=== PATIENT | female | born 2000 | race Caucasian/White ===

== ENCOUNTER 2024-06-28 11:08 | Outpatient (REF) | payer BC, SELFPAY ==
--- OUTSIDE RECORDS SUMMARY | 2024-06-28 14:10 | XMS_ITS | Encounter Summary ---
Author Organization [facility] Address [address] [place] [address] Care Team Providers Care Auto Locator Name Role Phone Luan Desir Primary Care Provider Reason for Visit * Reason Onset Date Comments seizures 12/08/2020 Encounter Details Date Type Department Care Team (Late st Contact Info) Description 12/08/2020 Telephone [facility] [address] [place] [address] Telephone Intake, Staff seizures Social History Tobacco [...] above. Best callback number and time: Catherine [phone] Guerreor asked her to call if any breakthrough seizures. Labs can be faxed to [facility] [phone] * Telephone Encounter - Angi Alatorre - [...] 2021. Please call mother Catherine back at [phone] documented in this encounter Plan of Treatment Not on file documented as of this encounter Visit Diagnoses Not on filedocumented in this encounter Care Teams Auto Locator Relationship Specialty Start Date End Date Luan Desir [address] [place] [address] PCP - General Family Medicine 07/28/20 documented as of this encounter
--- OUTSIDE RECORDS SUMMARY | 2024-06-28 14:11 | XMS_ITS | Referral Summary ---
Author Organization [facility] Address [address] [place] [address] Care Team Providers Care Livestock Farm Manager Name Role Phone Luan Desir Primary [...] [place] [address] BCBS OUT OF STATE PPO Advance Directives Documents on File Type Date Recorded Patient Cellular Phone Repairer Expl anation Health Care Proxy 09/08/2021 12:40 PM - * Full Code (Latest Code Status on File) Date Activated Date Inactivated Comments 09/07/2021 4:40 PM 09/11/2021 6:04 PM Healthcare Agents on File Name Relationship Healthcare Agent Relationshi p Communication Catherine Cliff Mother Health Care Agent Cieragail Coronado Father [facility] Health Care Ag ent Care Teams Livestock Farm Manager Relationship Specialty Start Date End Date Luan Desir [address] [place] [id number] PCP - General Family Medicine 07/28/20
--- OUTSIDE RECORDS SUMMARY | 2024-06-28 14:11 | XMS_ITS | Encounter Summary ---
Author Organization [facility] Address [address] [place] [address] Care Team Providers Care Bag Shaker Name Role Phone Luan Desir Primary Care Provider [phone] Reason for Visit * Reason Comments Med Refill Encounter Details Date Type Department Care Team (Late st Contact Info) Description 01/02/2021 Refill [facility] [address] [place] [id number] Miky Guerrero MD [address] [place] [phone] Social History Tobacco Use Types Packs/Day Years [...] on filedocumented in this encounter Care Teams Bag Shaker Relationship Specialty Start Date End Date Luan Desir [address] [place] [phone] PCP - General Family Medicine 07/28/20 documented as of this encounter
--- OUTSIDE RECORDS SUMMARY | 2024-06-28 14:11 | XMS_ITS | Encounter Summary ---
Author Organization [facility] Address [address] [place] [address] Care Team Providers Care Valve Steamer Name Role Phone Luan Desir MD Primary Care Provider + Encounter Details Date Type Department Care Team (Late st Contact Info) Description 06/18/2020 Scanned Document [facility] [place] [address] [place] [address] [place] [id number] Provider, MD Yodit [address] [place] [address] Social History Tobacco Use Types Packs/Day Years [...] on filedocumented in this encounter Care Teams Valve Steamer Relationship Specialty Start Date End Date Luan Desir MD [address] [place] [id number] PCP - General 12/07/18 documented as of this encounter
--- OUTSIDE RECORDS SUMMARY | 2024-06-28 14:11 | XMS_ITS | Encounter Summary ---
Author Organization [facility] Address [address] [place] [address] Care Team Providers Care Linen Room Custodian Name Role Phone Luan Desir Primary Care Provider [phone] Reason for Visit * Reason Onset Date Comments call to speak with provider 05/28/2021 Encounter Details Date Type Department Care Team (Late st Contact Info) Description 05/28/2021 Telephone [facility] Central Scheduling Department [address] [place] [address] Telephone Intake, Staff call to speak with [...] she had pls follow up with pt [phone] documented in this encounter Plan of Treatment Not on file documented as of this encounter Visit Diagnoses Not on filedocumented in this encounter Care Teams Linen Room Custodian Relationship Specialty Start Date End Date Luan Desir [address] [place] [id number] PCP - General Family Medicine 07/28/20 documented as of this encounter
--- OUTSIDE RECORDS SUMMARY | 2024-06-28 14:11 | XMS_ITS | Clinical Summary ---
Author Organization [facility] Address [address] [place] [address] Care Team Providers Care Counter Hand Name Role Phone Luan Desir Primary Care [...] Documents on File Type Date Recorded Patient Sales Management Trainee Expl anation Health Care Proxy 09/08/2021 12:40 PM -2 * Full Code (Latest Code Status on File) Date Activated Date Inactivated Comments 09/07/2021 4:40 PM 09/11/2021 6:04 PM Healthcare Agents on File Name Relationship Healthcare Agent Relationshi p Communication Catherine Coronado Mother Health Care Agent Ciera Singh Cliff Father Alternate Health Care Ag ent Care Teams Counter Hand Relationship Specialty Start Date End Date Luan Desir [address] [place] [id number] PCP - General Family Medicine 07/28/20
--- OUTSIDE RECORDS SUMMARY | 2024-06-28 14:11 | XMS_ITS | Encounter Summary ---
Author Organization [facility] Address [address] [place] [address] Care Team Providers Care Blueprint Blocker Name Role Phone Luan Desir Primary Care Provider [phone] Encounter Details Date Type Department Care Team (Late st Contact Info) Description 07/28/2021 Telephone [facility] [address] [place] [address] Malcolm Le MD [address] [place] [address] Social History Tobacco Use Types Packs/Day Years [...] Primary documented in this encounter Care Teams Blueprint Blocker Relationship Specialty Start Date End Date Luan Desir [address] [place] [id number] PCP - General Family Medicine 07/28/20 documented as of this encounter
--- OUTSIDE RECORDS SUMMARY | 2024-06-28 14:11 | XMS_ITS | Clinical Summary ---
Author Organization [facility] Address [address] [place] [address] Care Team Providers Care Hospital Aides And Assistants Teacher Name Role Phone Manjinder Aguila MD Primary Care Provider [phone] Source Comments Please note that some or [...] so, obtain the minor's consent prior to disclosure.[facility] Allergies No known active allergies Medications [...] to complete this topic Insurance [facility] Address: [facility] [address] [place] [address] Care Teams Hospital Aides And Assistants Teacher Relationship Specialty Start Date End Date Manjinder Aguila MD PCP - General 02/10/16
--- OUTSIDE RECORDS SUMMARY | 2024-06-28 14:11 | XMS_ITS | Encounter Summary ---
Author Organization [facility] Address [address] [place] [address] Care Team Providers Care Trade Union Secretary Name Role Phone Luan Desir Primary Care Provider [phone] Encounter Details Date Type Department Care Team (Late st Contact Info) Description 07/28/2021 myChart Message [facility] [address] [place] [phone] Mychart, Generic Provider [address] [place] [phone] LTM-admission scheduled for: 09-07-2021 Social History Tobacco [...] on filedocumented in this encounter Care Teams Trade Union Secretary Relationship Specialty Start Date End Date Luan Desir [address] [place] [id number] PCP - General Family Medicine 07/28/20 documented as of this encounter
--- OUTSIDE RECORDS SUMMARY | 2024-06-28 14:11 | XMS_ITS | Encounter Summary ---
Author Organization [facility] Address [address] [place] [address] Care Team Providers Care Repair Miller Name Role Phone Luan Desir Primary Care Provider [phone] Encounter Details Date Type Department Care Team (Late st Contact Info) Description 07/30/2021 Tracksmithhart Message [facility] [address] [place] [id number] Mychart, Generic Provider [address] [place] [phone] LTM admission for 09-07-21/ day & hours. [...] on filedocumented in this encounter Care Teams Repair Miller Relationship Specialty Start Date End Date Luan Desir [address] [place] [address] PCP - General Family Medicine 07/28/20 documented as of this encounter
--- OUTSIDE RECORDS SUMMARY | 2024-06-28 14:11 | XMS_ITS | Clinical Summary ---
Author Organization [facility] Address [address] [place] [address] Care Team Providers Care Circus Hand Name Role Phone Luan Desir MD Primary [...] age to complete this topic Care Teams Circus Hand Relationship Specialty Start Date End Date Luan Desir MD [address] [place] [address] PCP - General 12/07/18
[2024-06-28 14:27] LABS: Influenza A PCR NEGATIVE (Negative); Influenza B PCR NEGATIVE (Negative); Resp Syncy Virus RNA Qual PCR NEGATIVE (Negative); SARS COV2 PCR INHOUSE NEGATIVE (Negative)
== END 2024-06-28 11:09 | disposition home or self-care (01) ==
LOC: HO.LAB 11:08
PROVIDERS: Visit Provider Nurse Practitioner Family
DX: J06.9 Acute upper respiratory infection, unspecified (principal)
CPT/HCPCS: 0241U; 94640

== ENCOUNTER 2024-06-28 11:08 | Outpatient (AMB) | payer BC, SELFPAY ==
--- NOTE | 2024-06-28 11:11 | MHC.OFFWIV ---
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 Reports Subjective Fevers, Diarrhea, Body Aches, Poor Appetite and Cough. [facility] Medical History (Updated 06/28/24 @ 11:35 by Josette Maldonado NP) Wheezing on auscultation Acute respiratory disease Social History Patient Tobacco Use Status: Never used Tobacco Review of Systems Const All systems reviewed & are unremarkable except as noted in HPI and below Physical Exam Vital Signs: Last Vital Signs Temp 98.2 F 06/28/24 11:16 Pulse 80 06/28/24 11:16 BP 116/74 06/28/24 11:16 Pulse Ox 98 06/28/24 11:16 Oxygen Delivery Method Room Air 06/28/24 11:16 BMI result Body Mass Index 23.6 Const General: cooperative and no acute distress Nutritional Appearance: thin Orientation/consciousness: patient oriented x3 HEENT Head: Yes normocephalic Ears: external ears normal and TM abnormal with fluid behind the TM bilateral General nose exam: Normal external nose present and Nasal discharge present Face and sinus: Yes sinuses nontender Mouth: moist mucous membranes Throat: Yes tonsils normal and Yes uvula midline Resp Effort & Inspection: normal respiratory effort and able to speak in complete sentences Auscultation: no crackles, no rales, rhonchi and wheezes scattered wheezes Cardio Rate: regular rate Heart sounds: S1 normal heart sound present and S2 normal heart sound present GI Palpation (GI): Soft to palpation, not firm, Tenderness to palpation present (GI) (Generalized Tenderness), no guarding and not rigid Auscultation: normal bowel sounds Skin Other: Warm, Dry and Pale skin Neuro General: patient oriented x3, gait normal and moves all extremities Psych Speech and movement: Normal speech and movement present Office Procedures Nebulizer Treatment Nebulizer Treatment 27596-Jlrbpeoot/MDI RX initial, or Nebulizer Subsequent Treatment Office Meds ipratropium 0.5 mg-albuterol 3 mg (2.5 mg base)/3 mL nebulization soln Performing Provider: Josette Maldonado NP Performing Location: [facility] Administered by: Josette Maldonado NP on 06/28/24 11:41 Dose Route Admin Location Dispensed Lot Number Expiration Date [facility] [employer] 3 mL inhalation 3 mL 05/18/25 [id number] AHP Assessment & Plan Assessment & Plan (1) Acute respiratory disease: Code(s): J06.9 - Acute upper respiratory infection, unspecified Plan: Ordered SARs Ordered in Office Neb Ordered Prednisone for 5 days. Ordered Amox for 7 days, Tx Walking Pneumonia empirically. Informed Patient if SARs positive, to Stop Taking Abx. Rest and Hydrate well with warm fluids. Filled [employer] Paper work for intermittent Leave from 06/28 - 07/03 (2) Wheezing on auscultation: Code(s): R06.2 - Wheezing Plan: Ordered SARs Ordered in Office Neb. Lungs were CTA after Tx. Ordered Prednisone for 5 days. Ordered Amox for 7 days, Tx Walking Pneumonia empirically. Informed Patient if SARs positive, to Stop Taking Abx. Rest and Hydrate well with warm fluids. Filled [employer]ML[employer] Paper work for intermittent Leave from 06/28 - 07/03 Orders: Orders AMB Nebulizer Treatment Today R06.2 - Wheezing SARS-CoV2/FLU/RSV Today J06.9 - Acute upper respiratory infection, unspecified Medications: New prednisone 50 mg PO DAILY 5 tabs 0RF 5 days J06.9 - Acute upper respiratory infection, unspecified, R06.2 - Wheezing amoxicillin-pot clavulanate 875-125 mg 1 tab PO BID 14 tabs 0RF 7 days J06.9 - Acute upper respiratory infection, unspecified Coding Level of Care Code Est Pt Level 4 (23008) Diagnoses Acute respiratory disease J06.9 Wheezing on auscultation R06.2 CPT Codes Nebulizer Treatment - Nebulizer Treatment, initial or subsequent: [id number]-Siihqpkit/MDI RX initial, or Nebulizer Subsequent Treatment ([id number]) Time Spent (min) 20
[2024-06-28 11:16] VITALS: BP 116/74; PULSE 80; TEMP 36.8; O2SAT 98; BMI 23.6
--- OUTSIDE RECORDS SUMMARY | 2024-06-28 13:29 | XMS_ITS | Encounter Summary ---
Author Organization [facility] Address [address] [place] [address] Care Team Providers Care Button Decorating Machine Operator Name Role Phone Luan Desir Primary Care Provider [phone] Reason for Visit * Reason Comments Med Refill Encounter Details Date Type Department Care Team (Late st Contact Info) Description 01/02/2021 Refill [facility] [address] [place] [id number] Miky Guerrero MD [address] [place] [phone] Social History Tobacco Use Types Packs/Day Years Used Date Smoking Tobacco: Never Smokeless Tobacco: Never Alcohol Use Standard Drinks/Week Comments Not Currently 0 (1 standard drink = 0.6 oz pur e alcohol) Comments Unknown Sex and Gender Information Value Date Recorded Sex Assigned at Female 08/06/2020 11:37 AM EDT Legal Sex Female 4:10 PM EDT Gender Identity Female 08/06/2020 11:37 AM EDT Sexual Orientation Straight 08/06/2020 11 :37 AM EDT documented as of this encounter Miscellaneous Notes * Telephone Encounter - Latha Krause MA - 01/02/2021 9:50 AM EDT Requested Prescriptions Pending Prescriptions Disp Refills ??? levETIRAcetam XR (KEPPRA XR) 750 mg [Pharmacy Med Name: LEVETIRACETAM ER 750 MG TABLET] 60 tablet 2 Sig: TAKE 1 TABLET BY MOUTH TWICE A DAY Insurance requesting a 90 day supply, please resend documented in this encounter Plan of Treatment Not on file documented as of this encounter Visit Diagnoses Not on filedocumented in this encounter Care Teams Button Decorating Machine Operator Relationship Specialty Start Date End Date Luan Desir [address] [place] [id number] PCP - General Family Medicine 07/28/20 documented as of this encounter
--- OUTSIDE RECORDS SUMMARY | 2024-06-28 13:29 | XMS_ITS ---
Author Name [facility] Organization Unknown Encounters Encounter Type Encounter Reason Primary Diagnosis Location Date Ambulatory Syncope and collapse Syncope and collapse [facility] 11/01/2023 Ambulatory Other forms of dyspnea Other forms of dyspnea [facility] 10/07/2023 Ambulatory [facility] 07/26/2022 Ambulatory [facility] 07/19/2022 Care Team Organization Name Specialty Phone Email Start Date End Da te [facility] 10/07/2023 02/07/2024 [facility] 07/23/2022 02/07/2024 [facility] ROBERT YENNI Primary Care 07/19/2022 07/19/2022
--- OUTSIDE RECORDS SUMMARY | 2024-06-28 13:29 | XMS_ITS | Encounter Summary ---
Author Organization [facility] Address [address] [place] [address] Care Team Providers Care Hop Picker Name Role Phone Luan Desir Primary Care Provider [phone] Encounter Details Date Type Department Care Team (Late st Contact Info) Description 07/28/2021 myChart Message [facility] [address] [place] [phone] Mychart, Generic Provider [address] [place] [phone] LTM-admission scheduled for: 09-07-2021 Social History Tobacco Use Types Packs/Day Years [...] AM EDT documented as of this encounter Plan of Treatment Not on file documented as of this encounter Visit Diagnoses Not on filedocumented in this encounter Care Teams Hop Picker Relationship Specialty Start Date End Date Luan Desir [address] [place] [id number] PCP - General Family Medicine 07/28/20 documented as of this encounter
--- OUTSIDE RECORDS SUMMARY | 2024-06-28 13:29 | XMS_ITS | Data Portability ---
Author Organization [facility] ical [facility], _[place] Address [address] [facility] [place] [address] Care Team Providers Care Intelligence Group Supervisor Name Role Phone [facility] OTHER [facility] OTHER [phone] LUAN DESIR Primary Care Provider [phone] Assessment No assessment recorded. Plan of Treatment Reminders Order Date Submit Date Provider Last Modified By Organization Details Last Modified Time Details Appointments PHYSICAL 30 2024 11:15A Kina Lauren APRN Not available Not available Not available OFFICE 15 2024 09:45A Kina DESIR, DO Not available Not available Not available Lab measles igg Ab, serum 2023 024 [facility] ([facility]), [address] [place], [address], 07/21/2023 15:45:28 mumps igg Ab, serum 2023 024 [facility] ([facility]), [address] [place], [address], 07/21/2023 15:45:28 rubella igg Ab screen, serum 2023 024 [facility] ([facility]), [address] [place], [address], 07/21/2023 15:45:28 varicella -zoster igg Ab screen, serum 2023 024 [facility] ([facility]), [address] [place], [address], 07/21/2023 15:45:28 Referral cardiolog ist referral 2023 024 [facility] Not available 09/19/2023 10:46:30 Procedures None recorded. Surgeries None recorded. Imaging electroca rdiogram 2023 [facility] In-House Test, For Internal Use Only, Do Not Delete/merge, [id number] 09/19/2023 11:29:48 exercise stress echocardi ogram - [id number] ([facility] Ekg/Stress Orders), [address] [place], [address], 11/02/2023 11:35:36 Medication Orders Ventolin HFA 90 mcg/actua tion aerosol inhaler 2024 025 [facility] [address] [place], [address], 04/13/2024 10:07:37 cyclobenz aprine 10 mg tablet 2024 025 [facility], [address] [place], [address], 04/13/2024 10:07:37 hydroxyzi ne pamoate 50 mg capsule 2024 025 [facility] [address] [place], [address], 04/13/2024 10:07:38 propranol ol 10 mg tablet 2024 025 [facility] [address] [place], [address], 04/13/2024 10:07:38 sertralin e 50 mg tablet 2024 025 [facility], [address] [place], [address], 04/13/2024 10:04:48 albuterol sulfate HFA 90 mcg/actua tion aerosol inhaler 2023 024 [facility] [address] [facility] [place], [address], 07/20/2023 09:13:48 cyclobenz aprine 10 mg tablet 2023 024 [facility] [address] [facility] [place], [address], 07/20/2023 09:13:48 hydroxyzi ne pamoate 50 mg capsule 2023 024 [facility] [address] [facility] [place], [address], 07/20/2023 09:13:51 propranol ol 10 mg tablet 2023 024 [facility] [address] [facility] [place], [address], 07/20/2023 09:13:47 sertralin e 50 mg tablet 2023 024 [facility] [address] [facility] [place], [address], 07/20/2023 09:13:49 Vivitrol 380 mg intramusc ular suspensio n,extende d release 2022 023 [facility] Not available 04/13/2024 10:07:01 Vivitrol 380 mg intramusc ular suspensio n,extende d release 2022 023 [facility] Not available 04/13/2024 10:07:01 Patient TargetsNo targets recorded. Patient Instructions Encounter Date Encounter Id Patient Instructions Last Modified By Organization Details Last Modified Time 07/20/2023 [id number] fainting: care instructions [facility] Not available 07/20/2023 09:21:29 lightheadedness or faintness: care instructions [facility] Not available 07/20/2023 09:21:29 04/13/2024 [id number] obsessive-compul siv e disorder: care instructions apurcell Not available 04/13/2024 10:04:46 Reason for Referral Dean Of Instruction Referral for Sy ncope Referring Physician: Luan Desir, Family Medicine, Encounter Date: 07/20/2023 Results Created Date Observation Date Name Description Value Unit Range Abnormal Flag Note LastModifiedBy Organization Detail LastModifiedTime 09/19/19 elect rocar diogr am No observ ation record ed. rsoucier In-House Test For Internal Use Only, Do Not Delete/merge, [id number] 09/19/2023 10:01:16 09/20/19 elect rocar diogr am No observ ation record ed. jkersting In-House Test For Internal Use Only, Do Not Delete/merge, [id number] 09/20/2023 10:42:06 10/07/19 24 10/07/2023 cardi opulm onary stres s test (PROC ) No observ ation record ed. rsoucier Day [facility] ([facility] Ekg/Stress Orders) [address] [place] [address], [address], 10/11/2023 11:25:49 10/12/19 24 10/07/2023 exerc ise stres s test [facility] AL Diagno stic Imagin g Depart [address] [address] [phone] ___ ___ YG T: DICKSON LUI ADM #: [id number] MR #: [id number] SEX: F AGE: 23Y DATE OF : 1999 ADMISS ION DATE AND TIME: Oct 07 2023 1:22PM ADM PHYSIC KEITH: ([phone] [phone]) ANITA Ospina M.D. HOSP SERV: RXE CLIN HX: Other forms of dyspne a; ___ ____ ___ ____ IMAGIN G SERVIC ES PRELIM INARY PROCED URE: EKG 9965 - EXERCI SE STRESS TEST -- Oct 07 2023 1:29PM ACC#: [id number] PROCED URE REASON : Dyspne a HEIGHT : 69.5 inches . WEIGHT : 158 lbs. DATE AND TIME OF DICTAT ION: 024 FILE#: [id number] CARDIA C CONSUL TATION NOTE AND REPORT BRIEF HISTOR Y: The yg stewart is a 23 year old female who recent ly had chest discom fort kit [facility] bed as pressu re with exerti on. The yg stewart is having this test done for chest pain. RISK FACTOR S: Smokin g. MEDICA TIONS: Cyclob enzapr ine, d-parker ose, hydrox yzine pamoat e, propra nolol, sertra line, Ventol in HFA. PHYSIC AL EXAM: Genera l: Alert and orient ed in no appare nt distre ss. Neck: No JVD. Lungs: Clear to auscul tation . Heart: Regula r rhythm withou t murmur s, gallop s, or thrill s. PRE-TE ST: BP: 108/70 . Heart Rate: 66. ECG: Sinus rhythm , normal ST's. RESULT : Maximu m predic marcelo heart rate is 197. Peak blood pressu re is 139/68 . Double Produc t: 24,186 . Peak heart rate is 174 which is 88% of maximu m predic marcelo heart rate. Total exerci sed time is 10 minute s which is 1 minute into stage 4 of the regula r Ming protoc ol. MET level: 13. Arrhyt hmias: None. The test was stoppe d due to fatigu e. ECG: No ST change s. Sympto ms: None. IMPRES GAEL: 1. Negati ve regula r Ming protoc ol stress test by ECG criter ia. 2. No chest pain associ ated with stress . 3. Normal heart rate and blood pressu re respon se to exerci se. 4. No arrhyt hmias. 5. Good functi onal capaci ty. 6. Low likeli payne of underl rosa CAD based on the overal l findin gs of this study. RECOMM ENDATI ONS/MENSAH GGESTI ONS: 1. Yg t to follow up with PCP. dkr Examin sha Husseinp reted by: ANITA Ospina M.D. Electr onical ly Signed by: ON: Other forms of dyspne a \R\ rsoucier Day [address], [address], 10/12/2023 10:01:00 10/19/19 24 10/07/2023 exerc ise stres s test [facility] AL Diagno stic Imagin g [address] [address] [phone] ___ ___ YG T: DICKSON LUI ADM #: [id number] MR #: [id number] SEX: F AGE: 23Y DATE OF : 1999 ADMISS ION DATE AND TIME: Dung 19 2024 1:22PM ADM PHYSIC KEITH: ([phone]) ANITA Ospina M.D. HOSP SERV: RXE CLIN HX: Other forms of dyspne a; ___ ____ ___ ____ IMAGIN G SERVIC ES FINAL PROCED URE: EKG 9965 - EXERCI SE STRESS TEST -- Oct 07 2023 1:29PM ACC#: [id number] PROCED URE REASON : Dyspne a HEIGHT : 69.5 inches . WEIGHT : 158 lbs. DATE AND TIME OF DICTAT ION: 024 FILE#: [id number] CARDIA C CONSUL TATION NOTE AND REPORT BRIEF HISTOR Y: The patien pat is a 23 year old female who recent ly had chest discom fort kit [facility] bed as pressu re with exerti on. The yg stewart is having this test done for chest pain. RISK FACTOR S: Smokin g. MEDICA TIONS: Cyclob enzapr ine, d-parker ose, hydrox yzine pamoat e, propra nolol, sertra line, Ventol in HFA. PHYSIC AL EXAM: Genera l: Alert and orient ed in no appare nt distre ss. Neck: No JVD. Lungs: Clear to auscul tation . Heart: Regula r rhythm withou t murmur s, gallop s, or thrill s. PRE-TE ST: BP: 108/70 . Heart Rate: 66. ECG: Sinus rhythm , normal ST's. RESULT : Maximu m predic marcelo heart rate is 197. Peak blood pressu re is 139/68 . Double Produc t: 24,186 . Peak heart rate is 174 which is 88% of maximu kina robertson heart rate. Total exerci sed time is 10 minute s which is 1 minute into stage 4 of the regula r Ming protoc ol. MET level: 13. Arrhyt hmias: None. The test was stoppe d due to fatigu e. ECG: No ST change s. Sympto ms: None. IMPRES GAEL: 1. Negati ve regula r Ming protoc ol stress test by ECG criter ia. 2. No chest pain associ ated with stress . 3. Normal heart rate and blood pressu re respon se to exerci se. 4. No arrhyt hmias. 5. Good functi onal capaci ty. 6. Low likeli payne of underl rosa CAD based on the overal l findin gs of this study. RECOMM ENDATI ONS/MENSAH GGESTI ONS: 1. Patiprieto t to follow up with PCP. dkr Examin ation Interp reted by: ANITA Ospina M.D. Electr onical ly Signed by: ANITA Ospina M.D. ON: Oct 19 2023 8:48AM Other forms of dyspne a \R\ rsoucier Day [address], [address], 10/19/2023 08:58:10 11/02/19 24 11/01/2023 doppl er ECHO routi ne full DAY [facility] AL Diagno stic Imagin g [address] [address] [phone] __ __ YG T: DICKSON LUI ADM #: [id number] MR #: [id number] SEX: F AGE: 23Y DATE OF : 1999 ADMISS ION DATE AND TIME: Nov 01 2023 3:00PM ADM PHYSIC KEITH: ([id number] [phone]) ANITA Ospina M.D. HOSP SERV: XUL CLIN HX: US STEFFEN R ECHO; __ ___ __ ___ IMAGIN G SERVIC ES FINAL PROCED URE: [id number] - STEFFEN R ECHO ROUTIN E FULL -- Nov 01 2023 3:57PM ACC#: [id number] PROCED URE REASON : Syncop e and collap se. RESULT : TRANST HORACI C ECHOCA RDIOGR AM REPORT Patien t Name: DICKSON Lagunas Date of Exam: 024 Medica l Rec #: [id number] Height : 69.0 in Accoun t #: [id number] \[id number] Weight : 150.0 lb Date of : [birth year] BP: 98/58 Patien t Age: 23 years BSA: 1.83 m Patien t Gender : F Sonogr apher: SAMI VR Indica tions: Syncop e Referr ing Phys: ANITA Ospina Study Qualit y: [place] te image qualit y. Exam Locati on: Outpat ient / Depart ment 2D AND M-MODE MEASUR EMENTS (pelon l ranges within parent heses) : Left Ventri kimber: Normal Aorta/ Left Atrium : Normal IVSd (2D): 0.74 cm (0.7-1 .1) Left Atrium (2D): 2.83 cm (1.9-4 .0) LVPWd (2D): 0.84 cm (0.7-1 .1) LA Volume A/L: LVIDd (2D): 4.87 cm (3.4-5 .7) LA Vol A4C A/L 38.4 ml LVIDs (2D): 3.22 cm LA Vol A2C A/L 30.3 ml LV FS (2D): 33.8 % (>25%) LA Vol BP A/L 36.0 ml LV EF (2D): 62.6 % (>50%) LV DIASTO LIC FUNCTI ON: MV Peak E: 0.69 m/s e', MV Jeannie: 0.13 m/s MV Peak A: 0.50 m/s E/e' Ratio: 5.47 E/A Ratio: 1.40 E' MV Latera l: 0.15 m/s E' MV Medial : 0.10 m/s Decel Time: 116 msec SPECTR AL DOPPLE R ANALYS IS (where applic able): Mitral Valve: MV Max Brady: 0.76 m/s MV P1/2 Time: 33.55 msec MV Mean Grad: 1.3 mmHg MV Area, PHT: 6.56 cm Aortic Valve: AoV Max Brady: 1.32 m/s AoV Peak P.0 mmHg AoV Mean P.3 mmHg LVOT Vmax: 1.18 m/s LVOT VTI: 0.258 m LVOT Diamet er: 1.90 cm Aortic Valve: AoV Max Brady: 1.32 m/s AoV Peak P.0 mmHg AoV Mean P.3 mmHg AoV Area, VTI: 2.42 cm AoV Area, Vmax: 2.52 cm Tricus pid Valve and PA/RV Systol ic Pressu re: TR Max Veloci ty: 1.80 m/s RA Pressu re: 10 mmHg RVSP/P ASP: 22.9 mmHg RV S' Vmax 0.18 m/s Pulmon ic Valve: PV Max Veloci ty: 1.04 m/s PV Max P.3 mmHg PV Mean P.3 mmHg PHYSIC KEITH INTERP RETATI ON: Left Atrium : The left atrium is normal in size and struct ure. Right Atrium : The right atrium is normal in size and struct ure. Left Ventri kimber: Normal left ventri cular size and wall thickn esses, with normal systol ic and diasto lic functi on. Right Ventri kimber: Normal right ventri cular size, wall thickn ess, and systol ic functi on. Aorta: The aortic root and ascend ing aorta are struct urally normal , with no eviden ce of dilita tion. Pulmon yusuf Artery : The main pulmon yusuf artery is normal in size, origin and positi on; with normal bifurc ation into the left and right pulmon yusuf arteri es. Venous : Inferi or vena cava is normal with normal inspir atory collap se. Perica rdium: There is no eviden ce of perica rdial effusi on. Mitral Valve: Struct urally normal mitral valve, with normal leafle t excurs ion; withou t any eviden ce of mitral stenos is or signif icant regurg itatio n. Aortic Valve: The aortic valve is trilea flet and struct urally normal , with normal leafle t excurs ion; withou t any eviden ce of aortic stenos is or insuff icienc y. Tricus pid Valve: The tricus pid valve is normal in struct ure. Trace tricus pid regurg itatio n is visual ized. The tricus pid regurg itant veloci ty is 1.80 m/s, and with an assume d right atrial pressu re of 10 mmHg, the estima marcelo right ventri cular systol ic pressu re is normal at 22.9 mmHg. Pulmon ic Valve: Struct urally normal pulmon ic valve, with normal leafle t excurs ion; withou t any eviden ce of pulmon ic stenos is or signif icant regurg itatio n. Shunts : There is no eviden ce of a patent forame n ovale. No ventri cular septal defect is seen or detect ed. There is no eviden ce of an atrial septal defect . IMPRES GAEL: 1. Normal Echoca rdiogr am. [id number] Fidel Baptiste MD Electr onical ly signed by [id number] Fidel Baptiste MD Signat ure Date/T kan: 024/2: 34:29 PM Final Examin ation Interp reted by: FIDEL BAPTISTE M.D. Electr onical ly Signed by: FIDEL BAPTISTE M.D. ON: Nov 02 2023 2:34PM DOPPLE R ECHO \R\ rsoucier [address], [address], 11/04/2023 08:38:49 Result Notes None recorded. Problems Name Problem SNOMED Code Status Onset Date Resolution Date Notes Provider Name and Address Organization Details Recorded Time Anxiety 79856206 [facility] 09:[facility] Recurren t urinary tract infectio n 717156735 Active 2019 Alexus Lauren APRN [address] [place] [address], [address], [facility] 3 14:06:16 History of alcohol abuse 227045927 Active 2021 Alcohol use disorder : treated at [facility] r MD - medical detox. Admissio n: 12/18/21- 01/05/22 Alexus Luaren APRN [address] [place] [address], [address], [facility] 3 14:07:03 Seizure disorder 004429769 Active 2022 Function al Neurolog ical Disorder /Psychog enic Nonepile ptic seizures ; followed by [facility] Alexus Lauren APRN [address] [place] [address], [address], [facility] 3 14:12:00 Syncope 508628860 Active 2023 syncope and CP, h/o SZ D/O and ETOH EKG 10/11: normal Echo 11/11: 1. Normal Echocard iogram. ETT 10/11: 1. Negative regular Ming protocol stress test by ECG criteria . 2. No chest pain associat ed with stress. 3. Normal heart rate and blood pressure response to exercise . 4. No arrhythm ias. 5. Good function al capacity . 6. Low likeliho od of underlyi ng CAD based on the overall findings of this study. GUERLINE DONIS MD [address] [place], [place], , [place] [facility] 4 05:48:55 Obsessiv e-compul sive disorder 952771407 Active 2024 Luan Desir, DO [address] [facility], [place], [address], [place] [facility] 5 10:04:01 Cellulit is 632847338 Completed 11/10/2013 Bryanna Dobbins MD [address] [place] [address], , [place] [facility] 6 16:07:06 Acute pain 235371571 Completed 11/10/2013 Bryanna Dobbins MD [address] [place] [address], , [place] [facility] 6 16:07:06 Verruca plantari s 11494729 Completed 03/03/2014 Bryanna Dobbins MD [address] [place] [address], , [place] [facility] 6 16:07:06 Verruca vulgaris 61697794 Completed 03/03/2014 Bryanna Dobbins MD [address] [place] [address], , [place] [facility] 6 16:07:06 Headache 95083884 Completed Bryanna Dobbins MD [address] [place] [address] [place] [facility] 6 16:07:07 Eruption 620316825 Completed Bryanna Dobbins MD [address] [place] [address], , [place] [facility] 6 16:07:07 Fever 459748350 Completed Bryanna Dobbins MD [address] [place] [address], , [place] [facility] 6 16:07:07 Diarrhea 80234166 Completed Bryanna Dobbins MD [address] [place] [address] St, [place], [place], , [place] - [facility] 6 16:07:07 Vomiting [id number] Completed Bryanna Dobbins MD [address] [place] [address], [place], [place], , [place] - [facility] 6 16:07:07 Fibromyo sitis [id number] Completed Bryanna Dobbins MD [address] [place] [address], [place], [place], , [place] - [facility] 6 16:07:07 Acute pharyngi tis 307915715 Completed Bryanna Dobbins MD [address] [place] [address], [place], [place], , [place] - [facility] 6 16:07:06 Sprain of spinal ligament 860634435 Completed Bryanna Dobbins MD [address] [place] [address], , [place] [facility] 6 16:07:07 Urticari a [id number] Completed Bryanna Dobbins MD [address] [place] [address], , [place] - [facility] 6 16:07:07 Acute suppurat seth otitis media without spontane ous rupture of ear drum 63121129 Completed Bryanna Dobbins MD [address] [place] [address], , [place] [facility] 6 16:07:06 Contact dermatit is due to plants, except food Completed Bryanna Dobbins MD [address] [place] [address], , [place] [facility] 6 16:07:06 Acute upper respirat ory infectio n 82937445 Completed Bryanna Dobbins MD [address] [place] [address], , [place] [facility] 6 16:07:06 Abdomina l pain 34093629 Completed Bryanna Dobbins MD [address] [place] [address], , [place] [facility] 6 16:07:07 Joint pain 84156026 Completed Bryanna Dobbins MD [address] [place] [address], , [place] - Day [email or web address] 16:07:07 Conjunct ivitis 4406202 Completed Bryanna Dobbins MD [address] [place] [address], , [facility] 6 16:07:06 Streptoc occal sore throat 59406311 Completed Bryanna Dobbins MD [address] [place] [address], , [email or web address] [facility] 6 16:07:06 Malaise and fatigue 637340800 Completed Bryanna Dobbins MD [address] [place] [address], , [facility] [email or web address] [facility] 16:07:07 Cellulit is and abscess of trunk 031845939 Completed Bryanna Dobbins MD [address] [place] [address], , [facility] [email or web address] [facility] 16:07:06 Carbuncl e of skin and/or subcutan eous tissue [id number] Kim Dobbins MD [address] [place] [address], , [facility] [email or web address] [facility] 16:07:06 Problem Notes Documentation Provider Name and Address Organization Details Recorded Time Dean Of Instruction Consult Note : [facility] ? [address] [place] [id number] MORAN (id #[id number], : 2000) Documents sent via fax will include the following message: This fax may contain sensitive and confidential personal health information that is being sent for the sole use of the intended recipient. Unintended recipients are directed to securely destroy any materials received. You are hereby notified that the unauthorized disclosure or other unlawful use of this fax or any personal health information is prohibited. To the extent patient information contained in this fax is subject to 42 CFR Part 2, this regulation prohibits unauthorized disclosure of these records. If you received this fax in error, please visit [email or web address] to notify the sender and confirm that the information will be destroyed. If you do not have internet access, please call to notify the sender and confirm that the information will be destroyed. Thank you for your attention and cooperation. [ID:[id number]][facility] [employer] [address] [place] [phone] , Date: 4RE: Angella Moran, #[id number] : 2000 Date of Service: 4DjeraldAnthtushar Desir DO, I would like to thank you for referring Angella Moran to our practice for consultation and evaluation. I have enclosed a copy of the office evaluation for your records. Once again, thank you for allowing me to participate in the care of this patient. Sincerely, Electronically Signed by: GUERLINE DONIS MD Encounter Reason/Date See Dictated Appointment Note no recent EKG or labs 09/19/2023 - 10:00AM - [email or web address] History of Present IllnessReason for consultation: Syncope Presenting condition: syncope referred by Dr Desir, h/o SZ D/O and ETOH. She has a h/o stress induced seizures and previous ETOH but is now sober for years. last episode of syncope was 6 months ago. A/w diaphoresis and palpitations. She also describes FLOREZ. NYHA class II. The patient denies chest pain/pressure, jaw pain, nausea, visual changes, vertiginous symptoms, diarrhea and constipation. No recent illnesses, sick contacts, or known environmental exposures. No recent medication changes. No additional acute issues noted at this time. Review of SystemsAdditionally reports:She denies headache, dizziness, light-headedness. There are no changes in hearing or vision. No difficulty swallowing or reflux symptoms. She denies chest pain, orthopnea, or paroxysmal nocturnal dyspnea. There is no lower extremity edema. There is no abdominal pain, constipation, diarrhea, dysuria, hematuria, or urinary frequency. No new rashes or muscle aches. Remaining 10 system ROS is otherwise normal.Physical ExamGeneral:Pleasant female in no acute distress.HEENT:Moist oral mucosa; extra occular muscles intactNECK:Supple, no carotid bruits.JVP:7 cmCV: No MRGPulm:CTA and PMusculoskeletal:Strength and Range of Motion is within normal limits of all four extremities.EXT:No lower extremity edema. Distal pulses are 2 and bilaterally and symmetric.Abdomen:Soft, non tender, non distended, no masses, no organomegaly.Neuro:Cranial nerves II - XII are intact and she is alert and oriented x3.Skin:No bruises, no rashes. Procedure DocumentationNone recordedAssessment/Plan1. Syncope-syncope referred by Dr Desir, h/o SZ D/O and ETOH, infrequent. Hold off on monitor for now. R55: Syncope and collapse ELECTROCARDIOGRAM 2. Dyspnea on exertion-h/o ETOH, will order BAIRON to assess LV function and response to exercise. She will follow up in 6 months.R06.09: Other forms of dyspnea EXERCISE STRESS ECHOCARDIOGRAM Return to Office GUERLINE DONIS MD for [facility] on 03/26/2024 at 08:00 AM Jennyfer dean [employer] 09/19/2023 10:56:59 Procedures Surgical History Date Name Laterality Status Provider Name and Address Organization Details Recorded Time 1 Female Rigid Cystoscopy completed ELBERT ROSENBAUM MD [address] [place] [address], [phone], [facility] 08/13/2020 10:50:40 0 Bladder Scan - sfs completed ELBERT ROSENBAUM MD [address] [place] [address], [address], [facility] 02/20/2020 15:06:05 2 Destruction Benign Lesion Any Method 1 - 14 Lesions completed Miri [employer] [facility] 11/10/2011 11:25:12 2 Destruction Benign Lesion Any Method 15 or More Lesions completed [facility] [employer] [facility] 10/11/2011 12:29:45 2 Procedure 1 completed Vinicio Aly MD [address] [place] [address], [phone], [facility] 03/24/2011 16:11:09 1 tonsilectomy/ad enoids completed Ana Hollis [facility] 05/28/2013 13:31:48 4 Ear Tube completed Mary Farmer MD [address] [place], [address], [place] [facility] 06/21/2016 21:26:11 Imaging Results Imaging Date Name Status LastModified by Organization Details LastModified Time 09/19/2023 electrocardiogram completed [facility] In-Hous e Test For Internal Use Only, Do Not Delete/merge, [id number] 09/19/2023 10:01:16 09/20/2023 electrocardiogram completed [facility] In-Hous e Test For Internal Use Only, Do Not Delete/merge, [id number] 09/20/2023 10:42:06 10/07/2023 cardiopulmonary stress test (PROC) completed [facility] ([facility] Ekg/Stress Orders) [address] [place] [address], [address], 10/11/2023 11:25:49 10/07/2023 exercise stress test completed [address], [address], 10/12/2023 10:01:00 10/07/2023 exercise stress test completed [address], [address], 10/19/2023 08:58:10 11/01/2023 doppler ECHO routine full completed [address], [address], 11/04/2023 08:38:49 Procedure Notes None recorded. Medical Equipment None Reported. Allergies No known drug allergies Medications Name Sig Start Date Stop Date Status Note LastModified by Organization Details LastModified Time flowflex kit test 09/08 completed Not Available Not Available Not Available cyclobenz aprine 10 mg tablet TAKE 1 TABLET BY MOUTH EVERY 12 HOURS NEEDED active Not Available Not Available No t Available amoxicill in 500 mg capsule active Not Available Not Available Not Available trazodone 50 mg tablet take 2 tablets at bedtime active Not Available Not Available No t Available alprazola m 1 mg tablet TAKE 1 TABLET 1 HOUR PRIOR TO APPOINTM ENT 06/21 completed end of course Not Available Not Available Not Available sulfameth oxazole 400 mg-trimet hoprim 80 mg tablet Take 1 tablet every 12 hours by oral route. active Not Available Not Available No t Available levetirac etam 500 mg tablet TAKE 2 TABLETS BY MOUTH TWICE A DAY 09/15 completed END Not Available Not Available Not Available amoxicill in 600 mg-potass ium clavulana te 42.9 mg/5 mL oral suspensio n active Not Available Not Available Not Available famotidin e 40 mg tablet Take 1 tablet every day by oral route. 10/02 completed Not Available Not Available Not Available Tubersol 5 tub. unit/0.1 mL intraderm al injection solution Inject 0.1 mL by intrader mal route. 07/19 completed Not Available Not Available Not Available penicilli n V potassium 250 mg/5 mL oral solution active Not Available Not Available Not Available clindamyc in HCl 150 mg capsule active Not Available Not Available Not Available hydroxyzi ne pamoate 50 mg capsule TAKE 1-2 TABS DAILY NEEDED FOR ANXIETY active Not Available Not Available No t Available metronida zole 500 mg tablet Take 1 tablet twice a day by oral route for 7 days. 05/23 completed end Not Available Not Available Not Available ciproflox acin 500 mg tablet TAKE 1 TABLET BY MOUTH EVERY 12 HOURS FOR 5 DAYS 04/13 completed Not Available Not Available Not Available sulfameth oxazole 800 mg-trimet hoprim 160 mg tablet Take 1 tablet every 12 hours by oral route for 1 day. 10/15 completed end of course Not Available Not Available Not Available amoxicill in 500 mg tablet Take 1 tablet twice a day by oral route for 10 days. 12/31 completed Not Available Not Available Not Available ondansetr on 8 mg disintegr ating tablet 05/23 completed end Not Available Not Available Not Available acetamino phen 120 mg-codein e 12 mg/5 mL Elixir active Not Available Not Available No t Available amoxicill in 250 mg chewable tablet active Not Available Not Available Not Available meloxicam 7.5 mg tablet TAKE ONE TABLET BY MOUTH DAILY WITH FOOD 06/21 completed Not Available Not Available Not Available oxycodone -acetamin ophen 5 mg-325 mg tablet TAKE 1 TABLET EVERY 4-6 HOURS NEEDED FOR PAIN 06/21 completed end of course Not Available Not Available Not Available propranol ol 10 mg tablet Take 1 tablet every 12 hours by oral route as directed . 2024 active Not Available Not Available Not Avai lable trazodone 100 mg tablet TAKE 1 TABLET BY MOUTH EVERYDAY AT BEDTIME 07/19 completed end Not Available Not Available Not Available baclofen 10 mg tablet TAKE 1 TABLET BY MOUTH THREE TIMES A DAY 04/11 completed end of course Not Available Not Available Not Available benzonata te 100 mg capsule TAKE 1 CAPSULE BY MOUTH EVERY 6-8 HOURS NEEDED FOR COUGH 07/19 completed Not Available Not Available Not Available cephalexi n 500 mg capsule 10/01 completed end of course Not Available Not Available Not Available erythromy emperatriz 5 mg/gram (0.5 %) eye ointment APPLY 1 CENTIMET ER RIBBON TO RIGHT EYE FIVE TIMES DAILY WHILE AWAK FOR 7 DAYS 04/26 completed end of course Not Available Not Available Not Available oseltamiv ir 75 mg capsule Take 1 capsule twice a day by oral route for 5 days. 05/31 completed Not Available Not Available Not Available sulfameth oxazole 200 mg-trimet hoprim 40 mg/5 mL oral suspensio n active Not Available Not Available Not Available amoxicill in 400 mg/5 mL oral suspensio n Take 12.5 mL twice a day by oral route with meals for 10 days. 08/19 completed Not Available Not Available Not Available mupirocin 2 % topical ointment active Not Available Not Available Not Available levofloxa emperatriz 500 mg tablet TAKE 1 TABLET EVERY 24 HOURS BY ORAL ROUTE 09/08 completed Not Available Not Available Not Available methylpre dnisolone 4 mg tablets in a dose pack START DAY BEFORE SURGERY 06/21 completed end of course Not Available Not Available Not Available sertralin e 50 mg tablet TAKE 1 TABLET BY MOUTH EVERY DAY active Not Available Not Available No t Available amoxicill in 875 mg-potass ium clavulana te 125 mg tablet TAKE 1 TABLET TWICE FOR 10 DAYS 07/19 completed end Not Available Not Available Not Available Ventolin HFA 90 mcg/actua tion aerosol inhaler INHALE 2 PUFFS EVERY 4 HOURS BY INHALATI ON ROUTE. active Not Available Not Available No t Available tobramyci n 0.3 %-dexamet hasone 0.1 % eye drops,pravin pension INSTILL 1 DROP IN RIGHT EYE EVERY 2 HOURS FOR THE REMAINDE R OF TODAY. THEN 4 TIMES A DAY FOR 1 WEEK 03/24 completed done Not Available Not Available Not Available escitalop miley 10 mg tablet TAKE 1 TABLET BY MOUTH EVERY DAY 07/29 completed stopped Apr 2020 Not Available Not Available Not Available 1.5/30 (28) 1.5 mg-30 mcg (21)/75 mg (7) tablet TAKE 1 TABLET BY MOUTH EVERY DAY active Not Available Not Available No t Available escitalop miley 5 mg tablet TAKE 1 TABLET BY MOUTH EVERY DAY 05/31 completed end of course Not Available Not Available Not Available nitrofura ntoin monohydra te/macroc rystals 100 mg capsule TAKE 1 CAPSULE BY MOUTH TWICE A DAY WITH FOOD FOR 5 DAYS 07/19 completed end Not Available Not Available Not Available Daily Multi-Vit borjas active Not Available Not Available Not Available Keppra 1,000 mg tablet Take 1 tablet every 12 hours by oral route. 09/15 completed END Not Available Not Available Not Available Vivitrol 380 mg intramusc ular suspensio n,extende d release Inject 4 mL every 4 weeks by intramus cular route. 04/13 completed end Not Available Not Available Not Available clindamyc in 1.2 % (1 % base)-ezequiel zoyl peroxide 5 % topical gel Apply a pea sized amount to affected areas at bedtime 06/21 completed end of course Not Available Not Available Not Available levetirac etam ER 750 mg tablet,ex tended release 24 hr TAKE 1 TABLET BY MOUTH TWICE A DAY 09/15 completed END Not Available Not Available Not Available Lastacaft 0.25 % eye drops INSTILL 1 DROP INTO BOTH EYES EVERY DAY active Not Available Not Available No t Available d-mannose active herbal suppleme nt for uti px Not Available Not Available Not Available potassium chloride ER 20 mEq tablet,ex tended release TAKE 2 TABLETS BY MOUTH ONCE 09/15 completed Not Available Not Available Not Available Onexton 1.2 % (1 % base)-3.7 5 % topical gel APPLY APEA SIZED AMOUNT TO AFFECTED AREAS AT BEDTIME 06/21 completed end of course Not Available Not Available Not Available Aurovela 1.5/30 (21) 1.5 mg-30 mcg tablet TAKE 1 TABLET BY MOUTH EVERY DAY; PT TAKES CONTINUO USLY 2024 active Not Available Not Available Not Avai lable Fluzone Quad (PF) 60 mcg (15 mcg x 4)/0.5 mL IM syringe PHARMACY ADMINIST ERED 05/23 completed end Not Available Not Available Not Available Vitals Date Recorded Body height Body mass index (BMI) Body weight Respiratory rate Pain severity - 0-10 verbal numeric rating [Score] - Reported Heart rate Oxygen saturation Oxygen saturation in Arterial blood by Pulse oximetry Systolic blood pressure Diastolic blood pressure Provider Name and Address Organization Details Last Updated DateTime 4 171.45 cm 24.2 kg/m2 89591 g 17 /min 0 71 /min 98 % 98 % 112 mm[Hg] 74 mm[Hg] Antoinett e Vicki [place] [facility] 4 08:57:02 Date Recorded Body height Body mass index (BMI) Body weight Heart rate Oxygen saturation Oxygen saturation in Arterial blood by Pulse oximetry Systolic blood pressure Diastolic blood pressure Provider Name and Address Organization Details Last Updated DateTime 4 171.45 cm 24.4 kg/m2 40195.5 9 g 67 /min 100 % 100 % 110 mm[Hg] 70 mm[Hg] LUDY RIVAS [facility] 4 10:05:09 Date Recorded Body height Body mass index (BMI) Body weight Respiratory rate Pain severity - 0-10 verbal numeric rating [Score] - Reported Heart rate Oxygen saturation Oxygen saturation in Arterial blood by Pulse oximetry Systolic blood pressure Diastolic blood pressure Provider Name and Address Organization Details Last Updated DateTime 5 171.45 cm 29.6 kg/m2 96488.7 4 g 17 /min 0 83 /min 97 % 97 % 114 mm[Hg] 72 mm[Hg] Antoinett e Vicki [facility] 5 09:47:22 Social History Question Answer Notes LastModified by Organization Details LastModified Time Tobacco Smoking Status Never Smoker Ana dean, [facility] 05/28/2013 13:31:48 What Is Your Level Of Alcohol Consumption? None Alcohol Use Disorder; Pt Is In Recovery [email or web address] Information not available 03/24/2022 If You Are , What Was Your Level Of Alcohol Consumption Prior To ? Occasional Information not available 02/16/2021 Animal Exposure? Yes 2 Cats, Dog CHART_MERGE Information not available 09/15/2013 Are You Or Have You Been Involved With Bullying? No CHART_MERGE Information not available 09/16/2013 What Is Your Level Of Caffeine Consumption? Occasional Tea Information not available 03/24/2022 What Type Of Diet Are You Following? REGULAR Information not available 06/19/2015 Which Illicit Or Recreational Drugs Have You Used? Marijuana Has Medical Card Information not available 03/24/2022 Do You Or Have You Ever Used E-cigarettes Or Vape? 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 No CHART_MERGE Information not available 09/15/2013 Current Grade College Information not available 01/01/2019 Lives With Mom, Dad [place] (1998) CHART_MERGE Information not available 09/16/2013 Household Members Smoke? No CHART_MERGE Information not available 09/16/2013 Concerned About Relationship Abuse Or Violence? No [email or web address] Information not available 06/21/2016 Smokes Marijuana? No CHART_MERGE Information not available 09/16/2013 Do You Periodically Check Your Breasts? Yes [email or web address] Information not available 01/03/2020 Marital Status Single Informatio n not available 06/19/2015 What Was The Date Of Your Most Recent Tobacco Screening? 03/24/2022 Information not available 03/24/2022 Seat Belts Used Routinely Yes Information not available 06/19/2015 Are You Sexually Active? Yes [email or web address] Information not available 06/21/2016 Do You Or Have You Ever Used Smokeless Tobacco? Never Used Smokeless Tobacco [email or web address] Information not available 01/01/2019 How Much Tobacco Do You Smoke? No CHART_MERGE Information not available 09/15/2013 Do You Use Any Illicit Or Recreational Drugs? Yes Information not available 03/24/2022 Do You Use Sunscreen Routinely? Yes CHART_MERGE Information not available 09/15/2013 Sex: Female Functional Status Question Answer Note LastModified by Organization D etails LastModified Time What is your exercise level? Moderate Information not available 06/19/2015 Mental Status None recorded. Family History Relationship Description Onset Age of this Age Resolved Age Notes LastModified by Organization Details LastModified Time Maternal Grandmother Hypercholest erolemia [email or web address] Not available 11/2015 15:46:05 Maternal Grandmother Hypertensive disorder [email or web address] Not available 11/2015 15:46:05 Mother No current problems or disability [email or web address] Not available 11/2015 15:46:05 Paternal Grandmother Problem ms deceas ed klamontagne Not available 07/28/2015 15:46:05 Maternal Grandfather Hypercholest erolemia klamontagne Not available 11/2015 15:46:05 Maternal Grandfather Hypertensive disorder [email or web address] Not available 11/2015 15:46:05 Father No current problems or disability [email or web address] Not available 11/2015 15:46:05 Paternal Grandfather Malignant tumor of thyroid gland [email or web address] Not available 12/19 13:58:47 Notes:no breast, colon ov ca Medical History Condition Response Other Y Neurological Y Psychiatric Y Genitourinary Y Females: Pap Smear up-to-date/date Y Infectious Disease Y Gynecological History Statement/Question Response Menarche (age) 13 Menstrual Cramping? no Any Changes in Periods N Duration of Flow (days) 3 Current Control Method BCPs Frequency of Cycle (Q days) Date of LMP 01/05/2022 Characteristics of Flow Light Obstetrics History GPAL:G 0 P 0 0 0 0 Immunizations Vaccine Type Date Status Note Provider Nam e and Address Organization Details Recorded Time Tdap 2 completed Not Available [facility] 04/07/2019 02:16:51 meningococcal MCV4P 2 completed Not Available [facility] 04/07/2019 02:16:48 Hep A, ped/adol, 2 dose 3 completed Not Available [facility] 04/07/2019 02:17:54 HPV, quadrivalent 4 completed Not Available [facility] 04/07/2019 02:17:39 HPV, quadrivalent 5 completed Not Available [facility] 04/07/2019 02:17:39 HPV9 5 completed Not Available [facility] 04/07/2019 02:21:46 meningococcal MCV4P 8 completed Not Available [facility] 04/07/2019 02:24:25 varicella 7 completed Jennyfer Vicki null, [place] [email or web address] 01/08/2022 09:50:01 pneumococcal conjugate PCV 7 1 completed Jennyfer Vicki null, [place] - [email or web address] 01/08/2022 09:50:01 IPV 5 completed Jennyfer Vicki null, [place] [email or web address] 01/08/2022 09:50:01 Hep B, unspecified formulation 0 completed Jennfyer Vicki null, [place] - [email or web address] 01/08/2022 09:50:01 DTaP, unspecified formulation 2 completed Jennyfer Vicki null, [place] [email or web address] 01/08/2022 09:50:01 pneumococcal conjugate PCV 7 1 completed Jennyfer Vicki null, [place] [email or web address] 01/08/2022 09:50:01 influenza, unspecified formulation 6 completed Jennyfer Vicki null, [place] [email or web address] 01/08/2022 09:50:01 MMR 5 completed Jennyfer Vicki null, [place] [email or web address] 01/08/2022 09:50:01 MMR 2 completed Jennyfer Vicki null, [place] [email or web address] 01/08/2022 09:50:01 IPV 1 completed Jennyfer Vicki null, [facility] 01/08/2022 09:50:01 DTaP, unspecified formulation 1 completed Jennyfer Vicki null, [facility] 01/08/2022 09:50:01 pneumococcal conjugate PCV 7 1 completed Jennyfer Vicki null, [facility] 01/08/2022 09:50:01 Hib, unspecified formulation 2 completed Jennyfer Vicki null, [facility] 01/08/2022 09:50:01 Hep B, unspecified formulation 1 completed Jennyfer Vicki null, [facility] 01/08/2022 09:50:01 Hib, unspecified formulation 1 completed Jennyfer Vicki null, [facility] 01/08/2022 09:50:01 Influenza, split virus, trivalent, preservative 7 completed Jennyfer Vicki null, [facility] 01/08/2022 09:50:01 Hep B, unspecified formulation 0 completed Jennyfer Vicki null, [facility] 01/08/2022 09:50:01 DTaP, unspecified formulation 1 completed Jennyfer Vicki null, [facility] 01/08/2022 09:50:01 pneumococcal conjugate PCV 7 1 completed Jennyfer Vicki null, [facility] 01/08/2022 09:50:01 Hib, unspecified formulation 1 completed Jennyfer Vicki null, [facility] 01/08/2022 09:50:01 DTaP, unspecified formulation 5 completed Jennyfer Vicki null, [facility] 01/08/2022 09:50:01 Hib, unspecified formulation 1 completed Jennyfer Vicki null, [facility] 01/08/2022 09:50:01 varicella 1 completed Jennyfer Vicki null, [facility] 01/08/2022 09:50:01 DTaP, unspecified formulation 1 completed Jennyfer Vicki null, [facility] 01/08/2022 09:50:01 IPV 1 completed Jennyfer Vicki null, [facility] 01/08/2022 09:50:01 IPV 1 completed Jennyfer Vicki null, [facility] 01/08/2022 09:50:01 Tdap 3 completed Luan Desir, [address] [facility], [place], [address], [facility] 10/18/2022 11:18:49 meningococcal B, recombinant 3 completed Luan Desir, DO [address] [facility], [place], [address], [facility] 10/18/2022 11:18:49 Influenza, split virus, quadrivalent, preservative 9 completed Jennyfer Vicki null, [facility] 01/08/2022 09:50:01 Influenza, split virus, quadrivalent, preservative 0 completed Jennyfer Vicki null, [facility] 01/08/2022 09:50:01 COVID-19, mRNA, LNP-S, PF, 100 mcg/0.5mL dose or 50 mcg/0.25mL dose 1 completed Jennyfer Vicki null, [facility] 01/08/2022 09:50:01 COVID-19, mRNA, LNP-S, PF, 100 mcg/0.5mL dose or 50 mcg/0.25mL dose 1 completed Jennyfer Vicki null, [facility] 01/08/2022 09:50:01 Hep A, ped/adol, 2 dose 1 completed Not Available [facility] 04/07/2019 02:18:30 Past Encounters Encounter ID Performer Location Encounter Start Date Encounter Closed Date Diagnosis/Indication Diagnosis SNOMED-CT Code Diagnosis ICD10 Code Diagnosis Note [id number] Ana Hollis [facility] [address] [place] [address] 03/18/2011 14:26:28 03/18/2011 16:03:28 [id number] Jacquelyn Reed [facility] [address] [facility] [place] [address] 03/24/2011 15:30:19 03/24/2011 16:15:13 [id number] Ana Hollis [facility] [address] [place] [address] 04/05/2011 16:20:40 04/05/2011 16:44:13 [id number] [facility] [place] [address] [facility] [place] [address] 05/04/2005 13:48:44 05/04/2005 16:52:26 [id number] P[facility]_ [place] [address] [place] [address] 07/12/2005 11:44:20 07/12/2005 15:49:52 [id number] [facility] [place] [address] [facility] [place] [address] 12/14/2005 11:33:38 05/16/2010 04:20:55 [id number] [facility] [place] [address] [facility] [place] [address] 12/21/2005 15:34:28 05/16/2010 04:20:55 [id number] [facility] [place] [address] [facility] [place] [address] 02/08/2006 17:39:37 05/16/2010 04:20:55 [id number] [facility]_ [place] [address] [place] [address] 02/17/2006 15:25:20 05/16/2010 04:20:55 [id number] [facility] [place] [address] [facility] [address] 12/22/2006 15:52:55 05/16/2010 04:20:55 [id number] [facility] [place] [address] [facility] [address] 02/16/2007 17:31:37 05/16/2010 04:20:55 [id number] P[facility]_ [place] [address] [place] [address] 05/22/2007 11:40:55 05/22/2007 15:13:16 [id number] [facility]_ [place] [address] [place] [address] 06/05/2007 15:24:15 06/05/2007 15:49:42 [id number] [facility]_ [place] [address] [place] [address] 05/22/2009 16:15:58 05/22/2009 20:21:42 [id number] P[facility]S_[facility] [address] [place] [address] [place] [address] 10/06/2009 11:40:37 10/06/2009 14:30:05 [id number] [facility]_ [place] [address] [place] [address] 10/08/2009 09:29:21 10/08/2009 17:28:03 [id number] [facility]_ [place] [address] [place] [address] 11/06/2009 09:18:01 11/11/2009 09:16:59 [id number] [facility] [place] [address] [place] [address] 01/05/2010 11:46:10 01/06/2010 11:03:15 [id number] [facility] [place] [address] [place] [address] 08/07/2010 09:15:11 08/07/2010 09:54:54 [id number] [facility]_ [place] [address] [place] [address] 08/14/2010 14:46:15 08/14/2010 15:39:44 [id number] [facility]_ [place] [address] [place] [address] 08/27/2010 16:23:54 08/28/2010 06:41:58 [id number] [facility]_ [place] [address] [place] [address] 12/21/2010 13:45:47 12/21/2010 15:30:58 [id number] [facility]_ [place] [address] [place] [address] 03/02/2006 11:39:15 05/16/2010 04:20:55 [id number] P[facility]_ [place] [address] [place] [id number] 03/03/2006 11:22:00 05/16/2010 04:20:55 [id number] [facility]_ [place] [address] [place] [id number] 03/10/2006 09:08:03 05/16/2010 04:20:55 [id number] [facility] [place] [address] [place] [id number] 08/24/2006 11:22:42 08/24/2006 12:10:00 [id number] [facility]_ [place] [address] [place] [id number] 12/26/2009 11:19:21 12/26/2009 12:19:56 [id number] [facility]_ [place] [address] [place] [id number] 04/01/2011 10:42:35 04/01/2011 11:57:00 [id number] P[facility]_ [place] [address] [place] [id number] 06/04/2011 09:35:20 06/07/2011 10:07:09 [id number] P[facility]_ [place] [address] [place] [place] [id number] 08/10/2011 11:21:24 08/10/2011 12:30:39 [id number] P[facility]_ [place] [address] [place] [id number] 09/20/2011 09:44:41 09/20/2011 11:24:54 [id number] [facility] [address] [facility] [place] [address] 10/11/2011 10:25:07 10/11/2011 11:12:20 [id number] SPEC[facility] ATOLOGY [address] [facility] [place] [address] 11/10/2011 09:30:15 11/10/2011 10:00:49 [id number] Lorna Grant MD [facility] [place] [address] [place] [id number] 11/17/2011 15:32:07 11/17/2011 16:46:19 [id number] [facility] [address] [place] [address] [place] [address] 11/26/2011 15:13:25 11/26/2011 15:39:22 [id number] [facility]_ [place] [address] [place] [address] 12/08/2011 15:28:18 12/08/2011 16:17:48 [id number] [facility]_ [place] [address] [place] [address] 03/28/2012 14:41:32 03/28/2012 15:28:23 [id number] [facility] [place] [address] [facility] [place] [address] 10/16/2012 15:55:41 10/16/2012 17:42:00 Adolescent - emotional problem [id number] Musculoske letal chest pain [id number] On License Of [facility] [id number] [facility] [address] [facility] [address] 01/22/2013 15:11:55 01/22/2013 16:30:10 Well child [id number] Infective hepatitis immunization [id number] Lorna Grant MD [facility] [place] [address] [facility] [place] [address] 08/20/2013 14:44:26 08/20/2013 17:50:29 Tuberculosis screening [id number] [facility] [place] [address] [facility] [address] 08/22/2013 14:48:44 08/22/2013 15:10:14 Tuberculosis screening [id number] Mirtha Moss [facility] [place] [address] [facility] [place] [address] 11/10/2013 08:36:41 11/10/2013 09:22:42 [facility] [id number] Lorna Grant MD [facility]S_ [place] [address] [facility] [place] [address] 02/20/2014 08:04:11 02/20/2014 09:12:45 Well child [id number] Administra tion of viral vaccine [id number] vickie valentino [facility]_ [place] [address] [facility] [place] [address] 05/01/2014 14:46:17 05/02/2014 10:24:01 Administration of viral vaccine [id number] Lorna Grant MD [facility] [place] [address] [place] [address] 03/04/2015 15:17:21 03/04/2015 16:44:45 Well child [id number] Z00.129 Administra tion of viral vaccine [id number] [id number] Lorna Grant MD [facility] [address] [place] [address] 06/03/2015 12:11:16 06/03/2015 13:52:51 Abdominal pain 00392281 R10.9 [id number] Mary Farmer MD OB[facility] [address] [place] [address] 06/19/2015 13:15:11 06/19/2015 14:23:25 Hemorrhagic cyst of ovary [id number] N83.29 [id number] SULEIMAN CONNELL APRN [facility] [address] [place] [address] 06/25/2015 14:53:16 06/25/2015 15:18:54 Acne 76623716 L70.9 Mild mixed. Reviewed the different forms of acne and available treatment methods of each. Will start onexton. Discussed proper daily use of the medication . Encouraged use of an oil-free moisturize r with sunscreen. Do not pick or scrub skin. Keratosis pilaris 792944 5 Q82.8 Discussed the condition and treatment option. Will start OTC excipial. Samples given. She will use the 10% in the morning and the 20% before bed. It is ok to use a light loofah in the shower. [id number] Lani Jay [facility] [place] [address] [place] [address] 07/28/2015 15:34:47 07/28/2015 16:46:00 Common cold 18917506 J00 [id number] Luan Desir DO _LITAEL SON [address] [place] [address] 03/31/2016 14:12:42 03/31/2016 15:25:29 Well child 631775942 Z00.137 [id number] Mary Farmer MD OB/GYN_PL [facility] [address] [place] [address] 06/21/2016 13:43:44 06/21/2016 15:53:31 Gynecologic examination 03583334 Z01.419 Uses oral contraception 3335838 Z30.41 [id number] Luan ThangDO MAGALY [address] [place] [address] 04/26/2017 15:16:33 04/26/2017 16:16:15 Active or passive immunization 833506275 Z23 Well child 026433957 Z00 .128 [id number] Mary Farmer MD OB/GYN_A[facility] [address] [place] [address] 09/05/2017 12:44:44 09/05/2017 13:49:12 Gynecologic examination 52585360 Z01.419 Contracept ion education 965369657 Z30.09 [id number] Luan ThangDO MAGALY [address] [place] [address] 09/05/2017 13:50:30 09/05/2017 14:36:42 Tuberculosis screening 343898912 Z11.1 [id number] Luantushar DesirDO MAGALY [address] [place] [address] 09/07/2017 14:05:21 09/07/2017 14:14:23 Tuberculosis screening 461748826 Z11.1 [id number] Buffy Snyder MD MAGALY HUNTER [address] [place] [address] 09/20/2017 10:20:50 09/20/2017 10:29:51 Tuberculosis screening 761045417 Z11.1 [id number] Buffy Snyder MD MAGALY HUNTER [address] [place] [address] 09/22/2017 10:28:20 09/22/2017 10:39:47 Tuberculosis screening 559974352 Z11.1 [id number] Luan ThangDO [place] [address] 05/22/2018 12:50:51 05/22/2018 14:20:04 Pain in pelvis 67454831 R10.2 [id number] Mary Farmer MD [facility] [employer] [address] [place] [address], [place] [address] 05/23/2018 08:57:33 05/23/2018 09:41:56 Pain in pelvis 49956733 R10.2 [id number] DO MAGALY Wesley [address] [place] [address] 11/29/2018 13:50:46 11/29/2018 14:48:46 Diarrhea 38983865 R19.7 [id number] DO MAGALY [place] [address] 12/18/2018 13:02:47 12/18/2018 14:21:49 Generalized anxiety disorder 87988331 F41.1 Major depr essive disorder 138853164 F32.9 Irritable bowel syndrome 51249484 K58.9 [id number] Alexus Lauren, NISHA [place] [employer] [address] [place] [address] 01/01/2019 13:26:21 01/01/2019 13:59:21 Gynecologic examination 75227392 Z01.419 Paps to start at 21 years old. Venereal d isease screening 490269150 Z11.3 Surveillan ce of oral contraception 045672736 Z30.41 [id number] DO MAGALY Wesley [address] [place] [address] 01/15/2019 13:58:27 01/15/2019 14:38:38 Anxiety disorder 559217596 F41.9 better on meds [id number] DO MAGALY [place] [address] 03/05/2019 13:01:03 03/05/2019 13:29:27 Generalized anxiety disorder 47825555 F41.1 Anxiety disorder 2539562 06 F41.9 better on medswill increase dose as anxiety has increased, recently [id number] Anay Mao PA-C MAGAL[place] [address] 04/27/2019 09:16:59 04/27/2019 09:52:16 Fever 880362160 R50.9 [id number] DO MAGALY [place] [address] 06/01/2019 15:33:59 06/01/2019 16:27:34 Anxiety 84111468 F41.9 Major depr essive disorder 646154129 F32.9 [id number] Agatha De La Rosa SON [address] [place] [address] 09/25/2019 09:27:29 09/26/2019 13:28:29 Tuberculosis screening 391434640 Z11.1 [id number] Agatha HUNTER [address] [place] [address] 09/27/2019 11:18:02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
--- OUTSIDE RECORDS SUMMARY | 2024-06-28 13:29 | XMS_ITS | Encounter Summary ---
Author Organization [facility] Address [address] [place] [address] Care Team Providers Care Drier Attendant Name Role Phone Luan Desir Primary Care Provider [phone] Reason for Visit * Reason Onset Date Comments call to speak with provider 05/28/2021 Encounter Details Date Type Department Care Team (Late st Contact Info) Description 05/28/2021 Telephone [facility] Central Scheduling Department [address] [place] [address] Telephone Intake, Staff call to speak with provider Social History Tobacco Use Types Packs/Day Years [...] encounter Miscellaneous Notes * Telephone Encounter - Elisabeth Live - 05/28/2021 1:05 PM EST Pt is requesting a call back from Miky Guerrero in regards to some questions she had pls follow up with pt [phone] documented in this encounter Plan of Treatment Not on file documented as of this encounter Visit Diagnoses Not on filedocumented in this encounter Care Teams Drier Attendant Relationship Specialty Start Date End Date Luan Desir [address] [place] [address] PCP - General Family Medicine 07/28/20 documented as of this encounter
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
--- OUTSIDE RECORDS SUMMARY | 2024-06-28 13:30 | XMS_ITS | Referral Summary ---
Author Organization [facility] Address [address] [place] [address] Care Team Providers Care Power Manager Name Role Phone Luan Desir Primary Care Provider [phone] Allergies No known active allergies Medications .5, 28, 1.5 mg-30 mcg (21)/75 mg (7) per tablet Take 1 tablet by mouth daily. 12/24/2019 Active ferrous sulfate 325 mg (65 mg iron) tablet Take 325 mg by mouth daily with breakfast. Active multivit-min/samy jessica fumarate (MULTI VITAMIN ORAL) Take 1 tablet by mouth daily. Active cyanocobalamin 1,000 mcg tablet Take 1,000 mcg by mouth once a day. 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 Overview (09/11/2021): Confirmed on EEG 08/2021 Syncope and collapse 07/31/2020 Resolved Problems Problem Noted Date Diagnosed Date Resolved Date Seizure 09/07/2021 09/11/2021 Immunizations Immunization Administration Dates Next Due Influenza Virus Vaccine, Milagros e, Attenuated, for Intranasal Use 03/26/2011 Social History Tobacco Use Types Packs/Day Years Used Date Smoking Tobacco: Never Smokeless Tobacco: Never Tobacco Cessation:Counseling Given: Not Answered Alcohol Use Standard Drinks/Week Comments Not Currently 3 (1 standard drink = 0.6 oz pur e alcohol) Comments No Sex and Gender Information Value Date Recorded Sex Assigned at Female 08/06/2020 11:37 AM EDT Legal Sex Female 4:10 PM EDT Gender Identity Female 08/06/2020 11:37 AM EDT Sexual Orientation Straight 08/06/2020 11 :37 AM EDT Last Filed Vital Signs Vital Sign Reading Time Taken Comments Blood Pressure 120/79 12/15/2021 3:41 PM EDT Pulse 88 12/15/2021 3:41 PM EDT Temperature 36.4 ??C (97.5 ??F) 12/15/2021 3:41 PM ED T Respiratory Rate 16 12/15/2021 3:41 PM EDT Oxygen Saturation 98% 09/11/2021 3:10 PM EDT Inhaled Oxygen Concentration - - Weight 60.8 kg (134 lb) 12/15/2021 3:41 PM EDT Height 175.3 cm (5' 9 ) 09/07/2021 4:00 PM EDT Body Mass Index 19.79 09/07/2021 4:00 PM EDT Plan of Treatment [place] [address] BCBS OUT OF STATE PPO Advance Directives Documents on File Type Date Recorded Patient Storeroom Clerk Expl anation Health Care Proxy 09/08/2021 12:40 PM - * Full Code (Latest Code Status on File) Date Activated Date Inactivated Comments 09/07/2021 4:40 PM 09/11/2021 6:04 PM Healthcare Agents on File Name Relationship Healthcare Agent Relationshi p Communication Catherine Cliff Mother Health Care Agent Cieragail Coronado Father [facility] Health Care Ag ent Care Teams Power Manager Relationship Specialty Start Date End Date Luan Desir [address] [place] [id number] PCP - General Family Medicine 07/28/20
--- OUTSIDE RECORDS SUMMARY | 2024-06-28 13:30 | XMS_ITS | Clinical Summary ---
Author Organization [facility] Address [address] [place] [address] Care Team Providers Care Sales Counselor Name Role Phone Manjinder Aguila MD Primary Care Provider [phone] Source Comments Please note that some or all of the patient's information could have additional privacy protections. State laws allow health care providers to render certain types of treatment to minors without parental consent. Please do not assume that this information can be shared solely by obtaining just the consent of the patient's parent/guardian. Please determine if all or part of the patient's care was rendered without parent/guardian involvement. And, if so, obtain the minor's consent prior to disclosure.[facility] Allergies No known active allergies Medications , 21, 1.5-30 mg-mcg Tablet 02/19/2016 Activ e FE , 28, 1.5 mg-30 mcg (21)/75 mg (7) per tablet 1 tablet daily 6 12/31/2015 Active Active Problems No known active problems Social History Tobacco Use Types Packs/Day Years Used Date Smoking Tobacco: Never Alcohol Use Standard Drinks/Week Comments Not Asked 0 (1 standard drink = 0.6 oz pur e alcohol) Comments Unknown Sex and Gender Information Value Date Recorded Sex Assigned at Not on file Legal Sex Female 2:54 PM EST Gender Identity Not on file Sexual Orientation Not on file Last Filed Vital Signs Vital Sign Reading Time Taken Comments Blood Pressure 106/63 02/23/2016 1:14 PM EST Pulse 62 02/23/2016 1:14 PM EST Temperature - - Respiratory Rate - - Oxygen Saturation - - Inhaled Oxygen Concentration - - Weight 64.4 kg (141 lb 15.6 oz) 02/23/2016 1:14 PM EST Height 171.2 cm (5' 7.4 ) 02/23/2016 1:14 PM EST Body Mass Index 21.97 02/23/2016 1:14 PM EST Plan of Treatment Health Maintenance Due Date Last Done Comments DTaP/TDAP/TD VACCINES (1 - Tdap) 01/22/2007 ADOLESCENT HIV SCREENING 01/22/2013 COVID-19 Vaccine ( - 2023-2 5 season) 2023 INFLUENZA (#1) 2023 NIRSEVIMAB VACCINES UNDER 8 MONTHS Aged Out No longer eligible based on patient's age to complete this topic Insurance CHOICE PLUS Care Teams Sales Counselor Relationship Specialty Start Date End Date Manjinedr Aguila MD PCP - General 02/10/16
--- OUTSIDE RECORDS SUMMARY | 2024-06-28 13:30 | XMS_ITS | Clinical Summary ---
Author Organization [facility] Address [address] [place] [address] Care Team Providers Care Motorcycle Police Officer Name Role Phone Luan Desir MD Primary Care Provider + Allergies No known active allergies Medications Medication Sig Dispensed Refills Start Date End Date Status escitalopram (LEXAPRO) 10 MG tablet escitalopram 10 mg tablet Active 1.5-30 MG-MCG tab Take 1 tablet by mouth daily. 08/16/2019 Active Social History Tobacco Use Types Packs/Day Years Used Date Smoking Tobacco: Never Smokeless Tobacco: Never Alcohol Use Standard Drinks/Week Comments Yes 0 (1 standard drink = 0.6 oz pur e alcohol) Sex and Gender Information Value Date Recorded Sex Assigned at Not on file Gender Identity Not on file Sexual Orientation Not on file Last Filed Vital Signs Vital Sign Reading Time Taken Comments Blood Pressure 114/66 10/04/2019 8:51 PM EDT Pulse 62 10/04/2019 8:51 PM EDT Temperature 36.3 ??C (97.3 ??F) 10/04/2019 7:46 PM ED T Respiratory Rate 18 10/04/2019 8:51 PM EDT Oxygen Saturation 98% 10/04/2019 8:51 PM EDT Inhaled Oxygen Concentration - - Weight 61.1 kg (134 lb 11.2 oz) 10/04/2019 7:46 PM EDT Height 175.3 cm (5' 9 ) 10/04/2019 7:46 PM EDT Body Mass Index 19.89 10/04/2019 7:46 PM EDT Plan of Treatment Health Maintenance Due Date Last Done Comments Hepatitis C Virus Screening 2000 HIV Screening 01/22/2013 HPV Vaccines (1 - 3-dose series) 01/22/2015 DTaP/Tdap/Td Vaccines (1 - Tdap) 01/22/2019 Hepatitis B Vaccines (1 of 3 - 19+ 3-dose series) 01/22/2019 Pap Smear (Ages 21-65) 01/22/2021 Influenza Vaccine 10/20/2023 03/26/2011, 02/16/2007, 02/08/2006 COVID-19 Vaccine (3 - 2023-2 5 season) 2023 06/15/2020, 05/18/2020 Pneumococcal Vaccine: Pediatric (0-5 Years) and At-Risk Patients (6 to 49 Years) Aged Out No longer eligible b ased on patient's age to complete this topic Care Teams Motorcycle Police Officer Relationship Specialty Start Date End Date Luan Desir MD [address] [place] [address] PCP - General 12/07/18
--- OUTSIDE RECORDS SUMMARY | 2024-06-28 13:30 | XMS_ITS | Encounter Summary ---
Author Organization [facility] Address [address] [place] [address] Care Team Providers Care It Sales Executive Name Role Phone Luan Desir Primary Care Provider [phone] Encounter Details Date Type Department Care Team (Late st Contact Info) Description 07/30/2021 SQLstreamhart Message [facility] Neurodiagnostics [address] [place] [phone] Mychart, Generic Provider [address] [place] [address] LTM admission for 09-07-21/ day & hours. Social History Tobacco Use Types Packs/Day Years [...] on filedocumented in this encounter Care Teams It Sales Executive Relationship Specialty Start Date End Date Luan Desir [address] [place] [address] PCP - General Family Medicine 07/28/20 documented as of this encounter
--- OUTSIDE RECORDS SUMMARY | 2024-06-28 13:30 | XMS_ITS | Clinical Summary ---
Author Organization [facility] Address [address] [place] [address] Care Team Providers Care Marine Cargo Specialist Name Role Phone Luan Desir Primary Care Provider Allergies No known active allergies Medications .5, [...] Milagros e, Attenuated, for Intranasal Use 03/26/2011 Family History Relation Name Status Comments Father Alive Mother Alive Social History Tobacco Use Types Packs/Day Years [...] 09/07/2021 4:00 PM EDT Plan of Treatment Health Maintenance Due Date Last Done Comments HIV Screening 2000 Pap Smear 2000 HPV Vaccines (3 - 2-dose series) 08/21/2014 05/01/19 15, 02/20/2014 Chlamydia Screening 2016 DTaP,Tdap,and Td Vaccines (7 - Td or Tdap) 11/16/2021 11/17/2011, 04/08/2004, 07/27/2001, Additional history exists COVID-19 Vaccine (4 - 2023-2 5 season) 2023 07/17/2020, 06/19/2020, 05/18/2020 Alcohol/Substance Use Screening 03/21/2024 Depression Screening and Follow-Up 03/21/2024 Social Drivers of Health Jeannie ual Screening 03/21/2024 Influenza Vaccine (Season Ended) 2024 12/25/2019, 12/27/2018, 03/26/2011, Additional history exists RSV Vaccine (60+ years old a nd patients) (1 - 1-dose 75+ series) 01/22/2075 Hepatitis B Vaccines Completed 2000, 2000, 2000 Pneumococcal Vaccine: Pediat keron (0-5 Years) and At-Risk Patients (6-50 Years) Completed 2001, 2000, 2000, Additional history exists Varicella Vaccines Completed 02/16/2007, 2001 Hepatitis C Screening Completed 06/17/2021, 022 Insurance BCBS OUT OF STATE PPO Advance Directives Documents on File Type Date Recorded Patient Coat Checker Expl anation Health Care Proxy 09/08/2021 12:40 PM -2 * Full Code (Latest Code Status on File) Date Activated Date Inactivated Comments 09/07/2021 4:40 PM 09/11/2021 6:04 PM Healthcare Agents on File Name Relationship Healthcare Agent Relationshi p Communication Catherine Coronado Mother Health Care Agent Ciera Singh Cliff Father Alternate Health Care Ag ent Care Teams Marine Cargo Specialist Relationship Specialty Start Date End Date Luan Desir [address] [place] [address] PCP - General Family Medicine 07/28/20
--- OUTSIDE RECORDS SUMMARY | 2024-06-28 13:30 | XMS_ITS | Encounter Summary ---
Author Organization [facility] Address [address] [place] [address] Care Team Providers Care Drop Wire Hanger Name Role Phone Luan Desir Primary Care Provider Encounter Details Date Type Department Care Team (Late st Contact Info) Description 07/28/2021 Telephone [facility] Neurodiagnostics [address] [place] [address] Malcolm Le MD [address] [place] [address] Social History Tobacco Use Types Packs/Day Years [...] encounter Miscellaneous Notes * Telephone Encounter - Yany Mai MD - 07/28/2021 3:22 PM EDT COVID-19 order signed. Thank you. documented in this encounter Plan of Treatment Not on file documented as of this encounter Visit Diagnoses Diagnosis Seizure-like activity (HCC)- Primary documented in this encounter Care Teams Drop Wire Hanger Relationship Specialty Start Date End Date Luan Desir [address] [place] [address] PCP - General Family Medicine 07/28/20 documented as of this encounter
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
--- OUTSIDE RECORDS SUMMARY | 2024-06-28 13:30 | XMS_ITS | Encounter Summary ---
Author Organization [facility] Address [address] [place] [address] Care Team Providers Care Product Manager Medical Device Name Role Phone Luan Desir MD Primary Care Provider + Encounter Details Date Type Department Care Team (Late st Contact Info) Description 06/18/2020 Scanned Document [facility] [place] [address] [place] [address] [place] [id number] Provider, MD [address] [place] [address] Social History Tobacco Use Types Packs/Day Years Used Date Smoking Tobacco: Never Smokeless Tobacco: Never Alcohol Use Standard Drinks/Week Comments Yes 0 (1 standard drink = 0.6 oz pur e alcohol) Sex and Gender Information Value Date Recorded Sex Assigned at Not on file Gender Identity Not on file Sexual Orientation Not on file documented as of this encounter Plan of Treatment Not on file documented as of this encounter Visit Diagnoses Not on filedocumented in this encounter Care Teams Product Manager Medical Device Relationship Specialty Start Date End Date Luan Desir MD [address] PEARL Romero [phone] PCP - General 12/07/18 documented as of this encounter
== END 2024-06-28 11:59 | disposition home or self-care (01) ==
PROVIDERS: Visit Provider Nurse Practitioner Family
DX: J06.9 Acute upper respiratory infection, unspecified (principal); R06.2 Wheezing

== ENCOUNTER → 2024-11-09 11:45 | Outpatient (BNV) | payer BC, SELFPAY | PROVIDERS: Visit Provider Psychiatry & Neurology Psychiatry | DX: F41.1 Generalized anxiety disorder (principal); F43.10 Post-traumatic stress disorder, unspecified; F10.90 Alcohol use, unspecified, uncomplicated; F90.9 Attention-deficit hyperactivity disorder, unspecified type; F39 Unspecified mood [affective] disorder; F50.9 Eating disorder, unspecified | CPT/HCPCS: 90792; 99213; 99214; 99215; 99417 ==

== ENCOUNTER 2024-11-21 09:45 | Outpatient (RCR) | payer BC, SELFPAY ==
[2024-10-31 12:05] VITALS: BMI 21.6
[2024-10-31 13:27] VITALS: BP 92/58; PULSE 60; TEMP 36.4
--- NOTE | 2024-10-31 13:46 | PC.ADMIT ---
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 Patient reports she would like to be able to handle her symptoms better. Patient is taking a leave of absence from work to work on her mental health. Patient identified her supports being her fiance and psych coordinator. Patient stated she lives with tata Luciano. Patient is alert and oriented x4. She is calm and cooperative. She presented with anxious mood and affect. She denied SI, no HI. She was given a copy of her safety plan if needed. Medications updated with patient and patient's pharmacy. She reports taking medications as prescribed. Patient stated her marijuana use has increased to smoking 5 bowls a day. She is interested in harm reduction thus has agreed to engage in [facility] Substance group. Patient received education on Marijuana use and potential short and termite treater effects as well as what Marijuana use disorder looks like and what to expect when cutting down use in regards to potential withdrawal sxs. Patient interested in quitting Vaping Nicotine. Education about potential harms of Vaping Nicotine provided along with Nicotine cessation materials. Patient also signed up with [employer] for more support around quitting. Patient reports sobriety from alcohol since 11/2021 after going into treatment at [facility] in [place].
--- NOTE | 2024-11-01 08:49 | PC.NURSE ---
Angella called out of the program today. Stated she took her sleep medication too late last night and feels drowsy this morning. She is prescribed one tab however has been taking two tabs of Trazodone stating her prescriber is aware and that was working well for her. Medication education provided along with importance of taking medications as prescribed. Patient reports she is safe and will be here tomorrow. Reports she will take Trazodone earlier at 2100 tonight so she is not so drowsy in the morning.
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
--- NOTE | 2024-11-12 13:58 | HO.PHP ---
[facility] staff member met with Angella after group three to assess safety due to her reporting thoughts of SI with a plan and no intent. Angella informed the clinician her plan is to take propanolol. [facility] staff member explored if she currently has access to that medication, she noted that she does. [facility] staff asked Angella how many pills she has of that. Angella disclosed that she has around 180 pills and stated she found them over the weekend. [facility] staff member asked Angella if she has someone who is able to take the medication and dispose of it. Angella did mention that she informed her partner of this plan but she has not provided him with the medication but he said if she doesn't hand it over willingly, they will be searching the apartment all night until he locates them. [facility] staff member suggested that we reach out to her partner who lives with her to safety plan. Angella stated that we won't be able to because he is in the [employer] and does not have access to his phone. Angella said that she will be able to give him the medications and she doesn't feel unsafe. [facility] staff member also informed him that since he is in the police academy the police department has a drop off box for prescription medications. Angella was receptive and said that she will encourage him to dispose of them there. [facility] staff member asked Angella what is stopping her from acting on those thoughts, she stated that she doesn't want her boyfriend to come home to finding her and she has 5 cats that would be lost without her. [facility] staff memberr was receptive and informed her that she will also have the doctor meet with her as well. Angella was receptive.
--- NOTE | 2024-11-12 16:27 | HO.PHPPROGNO ---
Subjective Subjective Date of Service: 11/12/24 Reason For Visit: OCD,ADHD,PTSD Interim History: Feeling better overall. She's been taking risperidone 0.5 mg bid, which has helped slow down her racing thoughts, feels calm. Denies excessive sedation or other SE. Successfuly d/c'd trazodone w/o any issue Down to 0.125 mg clonazepam/day-- no issue. Plans to try to d/c it after a few days denies any substance use Admits that she did find another 180 tab of propranolol when cleaning her house over the weekend and didn't initially tell her fiance. She states that she doesn't want to but was bothered by an intrusive (ego dystonic) thought of overdosing. Again- she has no desire to and she states that she wants to live. She told staff about the medications today, already notified her fiance and shantell have him dispose of them when he returns from work. She's looking forward to going indoor rock climbing this afternoon witha friend Medication Compliance: Yes Side effects from medications: No Attending Groups: Yes Mental Status Exam Mental Status Exam Narrative: well groomed. good eye contact calm motor activity. steady gait fluent speech mood is better affect is appropriate, bright thought process goal directed thought content- denies current SI. She is future oriented Does not appear to respond to internal stimuli a/o x 3 I/J intact Diagnostics Vital Signs (24Hr): BMI result Body Mass Index 21.6 Assessment & Plan Assessment & Plan (1) PTSD (post-traumatic stress disorder): Status: Acute Code(s): F43.10 - Post-traumatic stress disorder, unspecified (2) KENNEDY (generalized anxiety disorder): Status: Acute Code(s): F41.1 - Generalized anxiety disorder (3) Attention-deficit hyperactivity disorder, unspecified type: Status: Acute Code(s): F90.9 - Attention-deficit hyperactivity disorder, unspecified type Plan Pt is agreeable w/ plan to : continue PHP Continue current med regimen *not currently taking Vyvanse (required PA) Patient educated on: diagnosis and medication risk/benefits Informed Consent: understands Reason for contiued partial hosp. stay Substantial Risk for: med/psych decompensation Certification I certify that partial hospital treatment is medically necessary due to the symptoms and problems resulting from the patient's mental illness and the failure to treat the patient at the partial hospital level of care would likely result in the patient requiring inpatient psychiatric care which could not be prevented at a less intensive level of care. Total time managing care of this patient today ___35_ minutes. Discharge Plan Discharge Attending provider: Lilibeth Akins Medications: New lisdexamfetamine 10 mg capsule 10 mg PO QAM Qty: 14 0RF Rx Instructions: Partial Fill upon patient request. fluvoxamine 50 mg tablet 50 mg PO BEDTIME 14 Days Qty: 14 0RF Rx Instructions: Continue 200 mg qam for total of 250 mg/day risperidone 0.5 mg tablet See Rx Instructions .ROUTE .COMPLEX 7 Days Qty: 14 0RF Rx Instructions: Take 1/2 to 1 tab po bid prn for severe anxiety. Max daily dose: two 0.5 mg tabs (1 mg total) Continued clonidine HCl 0.1 mg Tablet 0.1 - 0.2 mg PO BEDTIME PRN (Reason: Anxiety) Rx Instructions: Take one to two tabs at bedtime PRN. clonazepam [Klonopin] 0.5 mg Tablet See Rx Instructions .ROUTE .COMPLEX PRN (Reason: Severe anxiety) Rx Instructions: Take 1/2 tab 1-2 times a day as needed for severe anxiety. norethindrone ac-eth estradiol [Aurovela 1.08/17 (21)] 1.5-30 mg-mcg Tablet 1 tab PO DAILY trazodone 100 mg Tablet 100 mg PO BEDTIME Rx Instructions: Prescribed one tab at bedtime patient takes 2 tabs at HS. fluvoxamine 100 mg Tablet 150 mg PO DAILY Patient Comments: Prescribed 1.5 tabs a day patient stated it was increased to 2 tabs a day by her prescriber. Rx Instructions: Prescribed 1.5 tabs daily patient takes 2 tabs daily. Print Language: Upper Sorbian
--- NOTE | 2024-11-16 16:56 | HO.PHPPROGNO ---
Subjective Subjective Date of Service: 11/16/24 Reason For Visit: OCD,ADHD,PTSD Interim History: Pt has found risperidone 0.25 mg (1/2 of .5 mg tab) bid to be very helpful in lowering her anxiety and denies any SE. She felt like it would be helpful to try it tid. Sleep has improved. Denies SI Medication Compliance: Yes Attending Groups: Yes Review of Systems Medical Review of Systems: unchanged Mental Status Exam Mental Status Exam Narrative: Appearance: Casually dressed. Grooming/hygiene wnl. Good eye contact Attitude:Cooperative Speech: Fluent and wnl in regard to volume, tone, prosody Motor activity: Calm and without any tics, tremors or dyskinesias. Steady gait Mood: better, less anxious Affect: appropriate, reactive, generally bright Thought process: goal directed and without evidence of formal thought disorder Thought content: as noted above. Future oriented Perception: does not appear to respond to internal stimuli Alert/oriented in all spheres Cognition grossly intact Insight: intact Judgment: intact Diagnostics Vital Signs (24Hr): BMI result Body Mass Index 21.6 Assessment & Plan Assessment & Plan (1) PTSD (post-traumatic stress disorder): Status: Acute Code(s): F43.10 - Post-traumatic stress disorder, unspecified (2) Attention-deficit hyperactivity disorder, unspecified type: Status: Acute Code(s): F90.9 - Attention-deficit hyperactivity disorder, unspecified type Plan Pt is agreeable w/ following plan: -Continue PHP -titrate risperidone to 1/2 to one 0.5 mg tab tid prn for anxiety/PTSD hyperarousal sx (off-label) Patient educated on: medication risk/benefits Informed Consent: understands Reason for contiued partial hosp. stay Substantial Risk for: med/psych decompensation Certification I certify that partial hospital treatment is medically necessary due to the symptoms and problems resulting from the patient's mental illness and the failure to treat the patient at the partial hospital level of care would likely result in the patient requiring inpatient psychiatric care which could not be prevented at a less intensive level of care. Total time managing care of this patient today _15___ minutes. Discharge Plan Discharge Attending provider: Lilibeth Akins Medications: New lisdexamfetamine 10 mg capsule 10 mg PO QAM Qty: 14 0RF Rx Instructions: Partial Fill upon patient request. fluvoxamine 50 mg tablet 50 mg PO BEDTIME 14 Days Qty: 14 0RF Rx Instructions: Continue 200 mg qam for total of 250 mg/day Continued clonidine HCl 0.1 mg Tablet 0.1 - 0.2 mg PO BEDTIME PRN (Reason: Anxiety) Rx Instructions: Take one to two tabs at bedtime PRN. clonazepam [Klonopin] 0.5 mg Tablet See Rx Instructions .ROUTE .COMPLEX PRN (Reason: Severe anxiety) Rx Instructions: Take 1/2 tab 1-2 times a day as needed for severe anxiety. norethindrone ac-eth estradiol [Aurovela 1.5 (21)] 1.5-30 mg-mcg Tablet 1 tab PO DAILY trazodone 100 mg Tablet 100 mg PO BEDTIME Rx Instructions: Prescribed one tab at bedtime patient takes 2 tabs at HS. fluvoxamine 100 mg Tablet 150 mg PO DAILY Patient Comments: Prescribed 1.5 tabs a day patient stated it was increased to 2 tabs a day by her prescriber. Rx Instructions: Prescribed 1.5 tabs daily patient takes 2 tabs daily. Changed risperidone 0.5 mg tablet See Rx Instructions .ROUTE .COMPLEX 14 Days Qty: 42 0RF Rx Instructions: Take 1/2 to 1 tab po tid prn for anxiety. Max 3 tabs (1.5 mg)/day. please d/c any other risperidone rx on file Print Language: Turkish
--- NOTE | 2024-11-21 20:12 | HO.PHPPROGNO ---
Subjective Subjective Date of Service: 11/21/24 Reason For Visit: OCD,ADHD,PTSD Interim History: Patient seen for follow-up, anticipating discharge at the end of program today.? I feeling more optimistic... I have options now, I have a little room to breath . Has been taking risperidone 1 tablet in AM and 1/2 tablet in PM. not as restless or fidgety No acute issues or concerns in interim. Medication compliant, medications well-tolerated. Denies any adverse effects.? Mood is stable.? Denies any hopelessness or SI. Denies thoughts of harming self or others at this time. Denies any aggressive ideation or HI. Denies any paranoia or AH or VH. Sleep, appetite, energy stable. Review of Systems Review of Systems Yes all other systems are reviewed and are negative Mental Status Exam Mental Status Exam Narrative: Appearance: Casually dressed. Grooming/hygiene wnl. Good eye contact Attitude:Cooperative Speech: Fluent and wnl in regard to volume, tone, prosody Motor activity: Calm and without any tics, tremors or dyskinesias. Steady gait Mood: better, less anxious Affect: appropriate, reactive, generally bright Thought process: goal directed and without evidence of formal thought disorder Thought content: as noted above. Future oriented Perception: does not appear to respond to internal stimuli Alert/oriented in all spheres Cognition grossly intact Insight: intact Judgment: intact Diagnostics Vital Signs (24Hr): BMI result Body Mass Index 21.6 Assessment & Plan Assessment & Plan (1) PTSD (post-traumatic stress disorder): Status: Acute Code(s): F43.10 - Post-traumatic stress disorder, unspecified (2) Attention-deficit hyperactivity disorder, unspecified type: Status: Acute Code(s): F90.9 - Attention-deficit hyperactivity disorder, unspecified type Plan Discharge from [facility] plans to return for IOP Continue regular medications? Refills sent to pharmacy Will defer further medication management to outpatient provider who she nmeets up with next *Safety plan reviewed *Discharge diagnoses, treatment course, discharge plan have been reviewed with patient (including medication regime, medication management, potential side effects) as well as treatment rationale were also revisited *Discharge paperwork signed and given to patient, copy sent for scanning to chart Patient educated on: diagnosis and medication risk/benefits Informed Consent: understands Reason for contiued partial hosp. stay Substantial Risk for: stable for discharge Certification I certify that partial hospital treatment is medically necessary due to the symptoms and problems resulting from the patient's mental illness and the failure to treat the patient at the partial hospital level of care would likely result in the patient requiring inpatient psychiatric care which could not be prevented at a less intensive level of care. Total time managing care of this patient today __30__ minutes. Discharge Plan Discharge Attending provider: Lilibeth Akins Medications: Continued clonidine HCl 0.1 mg Tablet 0.1 - 0.2 mg PO BEDTIME PRN (Reason: Anxiety) Rx Instructions: Take one to two tabs at bedtime PRN. norethindrone ac-eth estradiol [Aurovela 1.5 (21)] 1.5-30 mg-mcg Tablet 1 tab PO DAILY Changed risperidone 0.5 mg tablet See Rx Instructions .ROUTE .COMPLEX 14 Days Qty: 42 0RF Rx Instructions: Take 1/2 to 1 tab po tid prn for anxiety. Max 3 tabs (1.5 mg)/day. please d/c any other risperidone rx on file fluvoxamine 100 mg Tablet 250 mg PO DAILY Qty: 30 0RF Patient Comments: Prescribed 1.5 tabs a day patient stated it was increased to 2 tabs a day by her prescriber. Rx Instructions: Prescribed 1.5 tabs daily patient takes 2 tabs daily. Discontinued clonazepam [Klonopin] 0.5 mg Tablet See Rx Instructions .ROUTE .COMPLEX PRN (Reason: Severe anxiety) Rx Instructions: Take 1/2 tab 1-2 times a day as needed for severe anxiety. trazodone 100 mg Tablet 100 mg PO BEDTIME Rx Instructions: Prescribed one tab at bedtime patient takes 2 tabs at HS. Patient Education: Depression (DC), Anxiety (ED), Anxiety (GEN) Print Language: Uruguayan
== END 2024-11-21 23:59 | disposition home or self-care (01) ==
LOC: HO.PHPA 09:45
PROVIDERS: Visit Provider Psychiatry & Neurology Psychiatry
DX: F43.10 Post-traumatic stress disorder, unspecified (principal); F90.9 Attention-deficit hyperactivity disorder, unspecified type; F41.1 Generalized anxiety disorder; F10.90 Alcohol use, unspecified, uncomplicated; F39 Unspecified mood [affective] disorder; F50.9 Eating disorder, unspecified; Z79.899 Other long term (current) drug therapy
CPT/HCPCS: 90791; 90853

== ENCOUNTER → 2024-12-12 09:00 | Outpatient (BNV) | payer BC, SELFPAY | PROVIDERS: Visit Provider Psychiatry & Neurology Psychiatry | DX: F41.1 Generalized anxiety disorder (principal); F43.10 Post-traumatic stress disorder, unspecified; F10.90 Alcohol use, unspecified, uncomplicated; F90.9 Attention-deficit hyperactivity disorder, unspecified type; F39 Unspecified mood [affective] disorder; F50.9 Eating disorder, unspecified | CPT/HCPCS: 90792 ==

== ENCOUNTER 2024-12-18 09:00 | Outpatient (RCR) | payer BC, SELFPAY ==
[2024-12-05 10:55] VITALS: BMI 22.9
[2024-12-05 10:56] VITALS: BP 90/58; PULSE 60; TEMP 36.9
--- NOTE | 2024-12-05 12:35 | PC.ADMIT ---
Patient is a 24 year old single female who is stepping down from [facility] to [facility] secondary to c/o agitation, anxiety, insomnia, restlessness, mood, and anger issues. Stated when she started [facility] she was struggling with sever anxiety and AH of her father's voice yelling. Stated those symptoms have improved however primarily would like to work on anger outburst and maintaining behavioral control. Patient is alert and oriented x4. She is calm and cooperative. She presented with pleasant mood and anxious affect. She denied SI, no HI. She was given a copy of her safety plan if needed. She reports having cut down her use of [place] smoking 2 bowls at night only. Stated when she is working she would use less. She was in the [facility] groups when at [facility] however wants to concentrate on her mental health while in [facility]. Medications updated with patient and medical record. She stated since she was discharged from the program her outside prescriber, Huy Drummond, made some changes to Angella's medications decreasing her Fluvoxamine from 250 mg daily to 200 mg daily as it was felt that it was causing agitation at that dose. She also changed Risperdal to 0.5 mg BID scheduled. Patient reports she is taking medications as prescribed.
--- NOTE | 2024-12-06 15:32 | HO.IOP ---
Client's case was open and reviewed in teams.
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
--- NOTE | 2024-12-18 19:47 | HO.PHPPROGNO ---
Subjective Subjective Date of Service: 12/17/24 Reason For Visit: anxiety Interim History: Patient seen for follow-up. She is doing well on the ABilify. This has been a game changer...I feel so much more stable . By her account there is still room for considerable improvement even with considerable better emotional regulation. Rates her mood stability as improved from a 1/10 to a 5/10. Less intrusive thoughts with the Abilify. Denies any SI or thoughts of self harm or hopelessness. Denies any adverse effects. Plan to increase dose to 3.5 mg Medication Compliance: Yes Side effects from medications: No Attending Groups: Yes Review of Systems Acute medical concerns: No Review of Systems Review of Systems Yes all other systems are reviewed and are negative Mental Status Exam Mental Status Exam Narrative: Appearance: Casually dressed. Grooming/hygiene wnl. Good eye contact Attitude:Cooperative Speech: Fluent and wnl in regard to volume, tone, prosody Motor activity: Calm and without any tics, tremors or dyskinesias. Steady gait Mood: better, less anxious Affect: appropriate, reactive, generally bright Thought process: goal directed and without evidence of formal thought disorder Thought content: as noted above. Future oriented Perception: does not appear to respond to internal stimuli Alert/oriented in all spheres Cognition grossly intact Insight: intact Judgment: intact Diagnostics Vital Signs (24Hr): BMI result Body Mass Index 22.9 Assessment & Plan Assessment & Plan (1) PTSD (post-traumatic stress disorder): Status: Acute Code(s): F43.10 - Post-traumatic stress disorder, unspecified (2) Attention-deficit hyperactivity disorder, unspecified type: Status: Acute Code(s): F90.9 - Attention-deficit hyperactivity disorder, unspecified type Plan continue IOP increase Abilify to 3.5 mg qd continue clonidine 0.1-0.2 mg qhs prn sleep continue fluvoxamine ER 200 mg qhs risperidone 0.5 mg BID prn agitation Continue other regular medications? Refills sent to pharmacy Will defer further medication management to outpatient provider who she meets up with next *Safety plan reviewed *Discharge diagnoses, treatment course, discharge plan have been reviewed with patient (including medication regime, medication management, potential side effects) as well as treatment rationale were also revisited *Discharge paperwork signed and given to patient, copy sent for scanning to chart I certify that the patient needs IOP Services for a minimum of 9 hours per week of therapeutic services. I certify the patient is experiencing symptoms of such intensity that they are unable to be safely treated in a less intensive setting and would otherwise require admission to a more intensive level of care. Patient educated on: diagnosis and medication risk/benefits Informed Consent: understands Reason for contiued partial hosp. stay Substantial Risk for: med/psych decompensation Certification I certify that the patient needs IOP Services for a minimum of 9 hours per week of therapeutic services. I certify the patient is experiencing symptoms of such intensity that they are unable to be safely treated in a less intensive setting and would otherwise require admission to a more intensive level of care. Total time managing care of this patient today _30___ minutes. Discharge Plan Discharge Attending provider: Lilibeth Akins Medications: New aripiprazole 2 mg tablet 2 mg PO BEDTIME Qty: 30 0RF aripiprazole 5 mg tablet 5 mg PO BEDTIME Qty: 30 0RF Continued clonidine HCl 0.1 mg Tablet 0.1 - 0.2 mg PO BEDTIME PRN (Reason: Anxiety) Rx Instructions: Take one to two tabs at bedtime PRN. norethindrone ac-eth estradiol [Aurovela 1.08/17 (21)] 1.5-30 mg-mcg Tablet 1 tab PO DAILY Changed fluvoxamine 100 mg tablet 200 mg PO DAILY Qty: 60 0RF risperidone 0.5 mg tablet 0.5 mg PO BID PRN (Reason: agitation) Qty: 20 0RF Stand Alone Forms: Patient Portal Discharge page Patient Education: Mood Disorders (DC), Anxiety (ED) Print Language: Maori
--- NOTE | 2024-12-18 19:59 | P.PNPSP_ITS ---
Subjective Subjective Date of Service: 12/18/24 Reason For Visit: anxiety Interim History: Patient seen for follow-up, anticipating discharge at the end of program today.? It's been really helpful . Denies any adverse effects with bump up in dose. Reports no acute issues or concerns. Medication compliant, medications well- tolerated. Denies any adverse effects.? Mood is stable.? Denies any hopelessness or SI. Denies thoughts of harming self or others at this time. Denies any aggressive ideation or HI. Denies any paranoia or AH or VH. Sleep, appetite, energy stable. Medication Compliance: Yes Side effects from medications: No Attending Groups: Yes Review of Systems Acute medical concerns: No Review of Systems Review of Systems Yes all other systems are reviewed and are negative Mental Status Exam Mental Status Exam Narrative: Alert, oriented, in no acute distress. Calm, cooperative. Mood stable, affect appropriate. Speech normal. Thought process linear, coherent, more goal- directed. Thought content related to stressors, future-oriented, denies any helplessness, hopelessness or SI.? No aggressive ideation or HI. No paranoia or delusional content elicited. No evidence of psychosis. Insight and judgment fair-good. Diagnostics Vital Signs (24Hr): BMI result Body Mass Index 22.9 Assessment & Plan Assessment & Plan (1) PTSD (post-traumatic stress disorder): Status: Acute Code(s): F43.10 - Post-traumatic stress disorder, unspecified (2) Attention-deficit hyperactivity disorder, unspecified type: Status: Acute Code(s): F90.9 - Attention-deficit hyperactivity disorder, unspecified type Plan Discharge from IOP Continue regular medications? Refills sent to pharmacy Will defer further medication management to outpatient provider *Safety plan reviewed *Discharge diagnoses, treatment course, discharge plan have been reviewed with patient (including medication regime, medication management, potential side effects) as well as treatment rationale were also revisited *Discharge paperwork signed and given to patient, copy sent for scanning to chart Patient educated on: diagnosis and medication risk/benefits Informed Consent: understands Reason for contiued partial hosp. stay Substantial Risk for: stable for discharge Certification I certify that the patient needs IOP Services for a minimum of 9 hours per week of therapeutic services. I certify the patient is experiencing symptoms of such intensity that they are unable to be safely treated in a less intensive setting and would otherwise require admission to a more intensive level of care. Total time managing care of this patient today _30___ minutes. Discharge Plan Discharge Attending provider: Lilibeth Akins Medications: New aripiprazole 2 mg tablet 2 mg PO BEDTIME Qty: 30 0RF aripiprazole 5 mg tablet 5 mg PO BEDTIME Qty: 30 0RF Continued clonidine HCl 0.1 mg Tablet 0.1 - 0.2 mg PO BEDTIME PRN (Reason: Anxiety) Rx Instructions: Take one to two tabs at bedtime PRN. norethindrone ac-eth estradiol [Aurovela 1.08/17 (21)] 1.5-30 mg-mcg Tablet 1 tab PO DAILY Changed fluvoxamine 100 mg tablet 200 mg PO DAILY Qty: 60 0RF risperidone 0.5 mg tablet 0.5 mg PO BID PRN (Reason: agitation) Qty: 20 0RF Stand Alone Forms: Patient Portal Discharge page Patient Education: Mood Disorders (DC), Anxiety (ED) Print Language: Syrian
== END 2024-12-18 23:59 | disposition home or self-care (01) ==
LOC: HO.IOP 09:00
PROVIDERS: Visit Provider Psychiatry & Neurology Psychiatry
DX: F41.1 Generalized anxiety disorder (principal); F43.10 Post-traumatic stress disorder, unspecified; F10.90 Alcohol use, unspecified, uncomplicated; F90.9 Attention-deficit hyperactivity disorder, unspecified type; F39 Unspecified mood [affective] disorder; F50.9 Eating disorder, unspecified; Z79.899 Other long term (current) drug therapy
CPT/HCPCS: 90791; S9480